=== PATIENT | female | born 1955 | race Caucasian/White ===

== ENCOUNTER 2019-04-24 16:26 | Inpatient (IN) | payer MEDICARE ==
[~2019-04-24] VITALS: Ht 165.1 cm; Wt 62.6 kg
[2019-04-24 16:40] VITALS: BP 145/71
--- NOTE | 2019-04-24 17:03 | Emergency Room Report ---
History of Present Illness General Chief Complaint: Abnormal Labs Source: Patient Present Illness HPI Patient presents with complaints of increasingly elevated blood glucose levels over the past 4 days patient has been on oral medications for the past 4 to 5 years there has been no other recent change in medications denies any change in Eating habit denies any fevers or chills denies any chest pain denies any vomiting or diarrhea Denies any flank pain The friend at bedside reports that the patient appears to be somewhat confused at times However denies any slurring of her speech denies any focal weakness Allergies: Coded Allergies: No Known Allergies (Verified , 11/15/06) Patient History Past Medical History: see triage record Now: No Reviewed Nursing Documentation: PMH: Agreed; PSxH: Agreed Nursing Documentation-PMH Past Medical History: No History, Except For Hx Diabetes: Yes Review of Systems All Other Systems: negative except mentioned in HPI Physical Exam Vital Signs Date Time Temp Pulse Resp B/P (MAP) Pulse Ox O2 Delivery O2 Flow Rate FiO2 04/24/19 16:32 98.4 102 15 145/71 (95) 97 Room Air Sp02 EP Interpretation: reviewed, normal General Appearance: mild distress - Mildly tachypneic Head: normocephalic, atraumatic Eyes: bilateral eye PERRL, bilateral eye EOMI ENT: hearing grossly normal, normal pharynx, TMs + canals normal, uvula midline Neck: full range of motion, supple, no meningismus, no bony tend Respiratory: lungs clear, normal breath sounds, no rhonchi, no respiratory distress, no retraction, no accessory muscle use Cardiovascular #1: normal peripheral pulses, regular rate, rhythm, no edema, no gallop, no JVD, no murmur Gastrointestinal: normal bowel sounds, non tender, soft, no mass, no organomegaly, non-distended, no guarding, no hernia, no pulsatile mass, no rebound Genitourinary: no CVA tenderness Musculoskeletal: normal inspection Neurologic: motor strength/tone normal, still cleaner tube III-XII nml as tested, oriented x3 , sensory intact, responsive Psychiatric: mood/affect normal Skin: no rash Lymphatic: normal inspection, no adenopathy Procedures Critical Care Time Critical Care Time 70 minutes for multiple re-evaluations critical presentation and critical findings concerning for possible cardiac respiratory arrest not including any procedural time Medical Decision Making Diagnostic Impression: Primary Impression: Diabetic keto-acidosis ER Course Multiple differentials entertained upon arrival including but not limited to DKA , hyperglycemia, infectious etiology Patient's white blood cell count is significantly elevated consideration for infectious versus Dehydration is made Urine sample also shows infectious process broad-spectrum antibiotics initiated IV fluids along with Insulin drip initiated and patient admitted to ICU in critical condition Labs Test 04/24/19 17:20 04/24/19 18:30 04/24/19 19:00 04/25/19 04:15 White Blood Count 29.6 K/UL (4.8-10.8) 23.6 K/UL (4.8-10.8) Red Blood Count 4.29 M/UL (4.20-5.40) 3.71 M/UL (4.20-5.40) Hemoglobin 12.8 G/DL (12.0-16.0) 11.0 G/DL (12.0-16.0) Hematocrit 39.4 % (37.0-47.0) 32.6 % (37.0-47.0) Mean Corpuscular Volume 92 FL (80-99) 88 FL (80-99) Mean Corpuscular Hemoglobin 29.9 PG (27.0-31.0) 29.6 PG (27.0-31.0) Mean Corpuscular Hemoglobin Concent 32.6 G/DL (32.0-36.0) 33.7 G/DL (32.0-36.0) Red Cell Distribution Width 12.0 % (11.6-14.8) 12.4 % (11.6-14.8) Platelet Count 323 K/UL (150-450) 247 K/UL (150-450) Mean Platelet Volume 8.3 FL (6.5-10.1) 9.3 FL (6.5-10.1) Neutrophils (%) (Auto) % (45.0-75.0) % (45.0-75.0) Lymphocytes (%) (Auto) % (20.0-45.0) % (20.0-45.0) Monocytes (%) (Auto) % (1.0-10.0) % (1.0-10.0) Eosinophils (%) (Auto) % (0.0-3.0) % (0.0-3.0) Basophils (%) (Auto) % (0.0-2.0) % (0.0-2.0) Differential Total Cells Counted 100 100 Neutrophils % (Manual) 89 % (45-75) 88 % (45-75) Lymphocytes % (Manual) 4 % (20-45) 8 % (20-45) Monocytes % (Manual) 3 % (1-10) 4 % (1-10) Eosinophils % (Manual) 0 % (0-3) 0 % (0-3) Basophils % (Manual) 0 % (0-2) 0 % (0-2) Metamyelocytes % 2 % (0-0) Band Neutrophils 2 % (0-8) 0 % (0-8) Platelet Estimate Adequate Adequate Platelet Morphology Normal Normal Red Blood Cell Morphology Normal Urine Color Pale yellow Urine Appearance Slightly cloudy Urine pH 5 (4.5-8.0) Urine Specific [place] 1.010 (1.005-1.035) Urine Protein Negative (NEGATIVE) Urine Glucose (UA) 4+ (NEGATIVE) Urine Ketones 2+ (NEGATIVE) Urine Blood 5+ (NEGATIVE) Urine Nitrite Negative (NEGATIVE) Urine Bilirubin Negative (NEGATIVE) Urine Urobilinogen Normal MG/DL (0.0-1.0) Urine Leukocyte Esterase 2+ (NEGATIVE) Urine RBC 10-15 /HPF (0 - 2) Urine WBC 20-30 /HPF (0 - 2) Urine Squamous Epithelial Cells Moderate /LPF (NONE/OCC) Urine Bacteria Many /HPF (NONE) Sodium Level 122 MMOL/L (136-145) 140 MMOL/L (136-145) Potassium Level 6.0 MMOL/L (3.5-5.1) 3.7 MMOL/L (3.5-5.1) Chloride Level 84 MMOL/L (98-107) 105 MMOL/L (98-107) Carbon Dioxide Level 10 MMOL/L (21-32) 20 MMOL/L (21-32) Anion Gap 28 mmol/L (5-15) 15 mmol/L (5-15) Blood Urea Nitrogen 33 mg/dL (7-18) 27 mg/dL (7-18) Creatinine 1.9 MG/DL (0.55-1.30) 1.0 MG/DL (0.55-1.30) Estimat Glomerular Filtration Rate 26.6 mL/min (>60) 55.7 mL/min (>60) Glucose Level 1058 MG/DL (74-106) 144 MG/DL (74-106) Calcium Level 10.4 MG/DL (8.5-10.1) 10.2 MG/DL (8.5-10.1) Total Bilirubin 0.7 MG/DL (0.2-1.0) 0.3 MG/DL (0.2-1.0) Aspartate Amino Transf (AST/SGOT) 11 U/L (15-37) 11 U/L (15-37) Alanine Aminotransferase (ALT/SGPT) 20 U/L (12-78) 13 U/L (12-78) Alkaline Phosphatase 110 U/L (46-116) 80 U/L (46-116) Total Protein 8.6 G/DL (6.4-8.2) 6.9 G/DL (6.4-8.2) Albumin 3.1 G/DL (3.4-5.0) 2.5 G/DL (3.4-5.0) Globulin 5.5 g/dL Albumin/Globulin Ratio 0.6 (1.0-2.7) Lipase 593 U/L (73-393) Arterial Blood pH 7.339 (7.350-7.450) Arterial Blood Partial Pressure CO2 21.5 mmHg (35.0-45.0) Arterial Blood Partial Pressure O2 121.3 mmHg (75.0-100.0) Arterial Blood HCO3 11.3 mmol/L (22.0-26.0) Arterial Blood Oxygen Saturation 97.9 % (95-100) Arterial Blood Base Excess -12.4 (-2-2) Saeid Test Positive Lactic Acid Level 1.60 mmol/L (0.4-2.0) Total Creatine Kinase 65 U/L (26-308) Creatine Kinase MB 2.4 NG/ML (0.0-3.6) Creatine Kinase MB Relative Index 3.6 Troponin I 0.019 ng/mL (0.000-0.056) Pro-B-Type Natriuretic Peptide 560 pg/mL (0-125) Hypochromasia 1+ Anisocytosis 1+ Prothrombin Time 10.3 SEC (9.30-11.50) Prothromb Time International Ratio 1.0 (0.9-1.1) Activated Partial Thromboplast Time 25 SEC (23-33) Hemoglobin A1c 14.4 % (4.3-6.0) Phosphorus Level 2.0 MG/DL (2.5-4.9) Direct Bilirubin < 0.1 MG/DL (0.0-0.3) Test 04/25/19 18:25 Sodium Level 140 MMOL/L (136-145) Potassium Level 3.9 MMOL/L (3.5-5.1) Chloride Level 107 MMOL/L (98-107) Carbon Dioxide Level 22 MMOL/L (21-32) Anion Gap 11 mmol/L (5-15) Blood Urea Nitrogen 17 mg/dL (7-18) Creatinine 0.7 MG/DL (0.55-1.30) Estimat Glomerular Filtration Rate > 60 mL/min (>60) Glucose Level 247 MG/DL (74-106) Calcium Level 9.9 MG/DL (8.5-10.1) Phosphorus Level 1.8 MG/DL (2.5-4.9) Magnesium Level 1.9 MG/DL (1.8-2.4) Rhythm Strip Diag. Results EP Interpretation: yes Rate: 95 Rhythm: NSR, no PVC's, no ectopy Chest X-Ray Diagnostic Results Chest X-Ray Diagnostic Results : Chest X-Ray Ordered: Yes # of Views/Limited/Complete: 1 View Indication: Chest Pain EP Interpretation: Yes Interpretation: no consolidation, no effusion, no pneumothorax Impression: No acute disease Electronically Signed by: Jose Juan Carter DO Last Vital Signs Date Time Temp Pulse Resp B/P (MAP) Pulse Ox O2 Delivery O2 Flow Rate FiO2 04/24/19 16:32 98.4 102 15 145/71 (95) 97 Room Air Status: improved Disposition: ADMITTED INPATIENT Condition: Critical Referrals: NON PHYSICIAN (PCP) Jose Juan Carter DO Apr 24, 2019 17:03
[2019-04-24] MEDS ORDERED: FENOFIBRATE145 M1 ORAL (17:36)
[2019-04-24] MEDS ORDERED: JANUMET 50-1,01 EACH ORAL (17:36)
[2019-04-24] MEDS ORDERED: GLIMEPIRIDE4 MG ORAL (17:36)
[2019-04-24] MEDS ORDERED: ACTOS30 MG ORAL (17:36)
[2019-04-24] MEDS ORDERED: LOSARTAN POTAS100 MG ORAL (17:36)
[2019-04-24 17:45] LABS: APPEARANCE,URINE SLIGHTLY CLOUDY; BILIRUBIN, URINE NEGATIVE (NEGATIVE); COLOR,URINE PALE YELLOW; GLUCOSE, URINE (UA) 4+ (NEGATIVE); KETONES,URINE 2+ (NEGATIVE); LEUKOCYTE ESTERASE ,URINE 2+ (NEGATIVE); NITRITE,URINE NEGATIVE (NEGATIVE); PH,URINE 5 (4.5-8.0); PROTEIN,URINE NEGATIVE (NEGATIVE); UROBILINOGEN,URINE NORMAL MG/DL (0.0-1.0)
[2019-04-24 17:54] LABS: HEMATOCRIT 39.4 % (37.0-47.0); HEMOGLOBIN 12.8 G/DL (12.0-16.0); MEAN CORPUSCULAR VOLUME 92 FL (80-99); PLATELET COUNT 323 K/UL (150-450); RED BLOOD COUNT 4.29 M/UL (4.20-5.40)
[2019-04-24 17:58] LABS: WHITE BLOOD COUNT 29.6 K/UL (4.8-10.8)
[2019-04-24 18:07] LABS: ALANINE AMINOTRANSFERASE 20 U/L (12-78); ALBUMIN 3.1 G/DL (3.4-5.0); ALBUMIN/GLOBULIN RATIO 0.6 (1.0-2.7); ALKALINE PHOSPHATASE 110 U/L (46-116); ANION GAP 28 mmol/L (5-15); ASPARTATE AMINO TRANSFERASE 11 U/L (15-37); BILIRUBIN,TOTAL 0.7 MG/DL (0.2-1.0); BLOOD UREA NITROGEN 33 mg/dL (7-18); CALCIUM 10.4 MG/DL (8.5-10.1); CARBON DIOXIDE 10 MMOL/L (21-32); CHLORIDE 84 MMOL/L (98-107); CREATININE 1.9 MG/DL (0.55-1.30); SODIUM 122 MMOL/L (136-145)
[2019-04-24] MEDS ORDERED: Insulin Human Regular 100units/ml 3ml IV ONE (18:15)
[2019-04-24] MEDS ORDERED: Sodium Chloride 1,900 ML IVLG ONE (18:15)
[2019-04-24] MEDS ORDERED: GLYXAMBI 10 MG1 EACH PO (18:18)
[2019-04-24] MEDS ORDERED: cefTRIAXone 1 GM in NS 55 ML IVPB ONE (19:15)
[2019-04-24] MEDS ORDERED: Sodium Bicarbonate 50ml Carp IV ONE (19:15)
[2019-04-24 20:02] LABS: CKMB 2.4 NG/ML (0.0-3.6)
[2019-04-24 21:00] VITALS: BP 134/62
[2019-04-24] MEDS ORDERED: Morphine Sulfate 4mg/ml Inj (IV USE ONLY) IVP PRN (21:30)
[2019-04-24] MEDS ORDERED: Miralax 17gm pkt ORAL PRN (21:30)
[2019-04-24] MEDS ORDERED: Insulin Human Regular 100units/ml 3ml IV PRN ×2 (21:30)
[2019-04-24] MEDS ORDERED: Albuterol/Ipratropium 3ml neb HHN PRN (21:30)
[2019-04-24] MEDS ORDERED: Nitroglycerin Subl 0.4mg tab SL PRN (21:30)
[2019-04-24] MEDS ORDERED: LORazepam Inj 2mg/ml 1ml IV PRN (21:30)
[2019-04-24 22:00] VITALS: BP 119/44
[2019-04-24 23:00] VITALS: BP 121/54
[2019-04-24] MEDS: Insulin Rate Change 1 Each MISC PRN (23:08)
[2019-04-25] VITALS (22 sets, daily range): BP systolic 110–151; BP diastolic 38–113
[2019-04-25] MEDS ORDERED: Insulin Human Regular 100units/ml 3ml IV PRN ×4 (00:15→10:00)
[2019-04-25] MEDS ORDERED: Insulin Rate Change 1 Each MISC PRN (00:15)
[2019-04-25] MEDS: Insulin Rate Change 1 Each MISC PRN ×5 (02:09→16:07)
[2019-04-25 05:18] LABS: HEMATOCRIT 32.6 % (37.0-47.0); MEAN CORPUSCULAR VOLUME 88 FL (80-99); PLATELET COUNT 247 K/UL (150-450); RED BLOOD COUNT 3.71 M/UL (4.20-5.40); RED CELL DISTRIBUTION WIDTH 12.4 % (11.6-14.8)
[2019-04-25 05:35] LABS: ANION GAP 15 mmol/L (5-15); BLOOD UREA NITROGEN 27 mg/dL (7-18); CALCIUM 10.2 MG/DL (8.5-10.1); CARBON DIOXIDE 20 MMOL/L (21-32); CHLORIDE 105 MMOL/L (98-107); POTASSIUM 3.7 MMOL/L (3.5-5.1); SODIUM 140 MMOL/L (136-145)
[2019-04-25 05:55] LABS: ALANINE AMINOTRANSFERASE 13 U/L (12-78); ALBUMIN 2.5 G/DL (3.4-5.0); ALKALINE PHOSPHATASE 80 U/L (46-116); ASPARTATE AMINO TRANSFERASE 11 U/L (15-37); BILIRUBIN,DIRECT < 0.1 MG/DL (0.0-0.3); BILIRUBIN,TOTAL 0.3 MG/DL (0.2-1.0)
[2019-04-25 05:56] LABS: WHITE BLOOD COUNT 23.6 K/UL (4.8-10.8)
[2019-04-25] MEDS: Heparin 5000 units/ml inj SUBQ SCH ×2 (08:15→21:33)
--- NOTE | 2019-04-25 10:41 | Consultation ---
History of Present Illness General Date patient seen: Apr 25, 2019 Chief Complaint: General Complaint Present Illness HPI 63 year old female with hx of DM presented to ER complaining of increasingly elevated blood glucose levels over the past 4 days. Pt's reports that the patient appears to be somewhat confused at times, with obsessive behavior. Allergies: Coded Allergies: No Known Allergies (Verified , 11/15/06) Medication History Scheduled Fenofibrate Nanocrystallized (Fenofibrate), 145 MG ORAL DAILY, (Reported) Glimepiride* (Glimepiride*), 4 MG ORAL DAILY, (Reported) Losartan Potassium (Losartan Potassium), 100 MG ORAL DAILY, (Reported) Pioglitazone Hcl* (Actos*), 30 MG ORAL DAILY, (Reported) Sitagliptin Phos/Metformin Hcl (Janumet 50-1,000 Mg Tablet), 1 TAB ORAL TWICE A DAY, (Reported) Miscellaneous Medications Empagliflozin/Linagliptin (Glyxambi 10 mg-5 mg Tablet), 1 EACH PO, (Reported) Patient History Healthcare decision maker N Resuscitation status Full Code Advanced Directive on File Past Medical/Surgical History Past Medical/Surgical History: (1) Diabetes mellitus Review of Systems All Other Systems: negative except mentioned in HPI Physical Exam General Appearance: WD/WN, alert Lines, tubes and drains: peripheral HEENT: normocephalic, atraumatic Neck: non-tender, normal alignment Respiratory/Chest: chest wall non-tender, lungs clear Breasts: no masses Cardiovascular/Chest: normal peripheral pulses, normal rate Abdomen: normal bowel sounds, non tender Genitourinary/Rectal: normal genital exam, normal prostate exam Extremities: normal range of motion, non-tender Skin Exam: normal pigmentation Neurologic: marketing professional II-XII grossly normal Last 24 Hour Vital Signs Date Time Temp Pulse Resp B/P (MAP) Pulse Ox O2 Delivery O2 Flow Rate FiO2 04/25/19 07:00 86 21 137/44 (75) 95 04/25/19 06:00 82 17 120/45 (70) 97 04/25/19 05:00 84 17 110/38 (62) 96 04/25/19 04:00 Room Air 04/25/19 04:00 98.8 82 20 127/55 (79) 97 04/25/19 03:37 84 04/25/19 03:00 81 18 128/56 (80) 95 04/25/19 02:34 99.2 83 20 127/55 94 Room Air 04/25/19 02:00 83 20 127/55 (79) 94 04/25/19 01:00 90 19 131/53 (79) 96 04/25/19 00:00 99.2 92 17 131/63 (85) 97 04/25/19 00:00 Room Air 04/24/19 23:04 95 04/24/19 23:00 96 22 121/54 (76) 93 04/24/19 22:00 93 21 119/44 (69) 98 04/24/19 21:17 105 04/24/19 21:17 Room Air 04/24/19 21:00 99.3 97 22 134/62 (86) 97 04/24/19 18:43 86 15 Room Air 04/24/19 16:40 98.4 86 15 145/71 97 Room Air 04/24/19 16:32 98.4 102 15 145/71 (95) 97 Room Air Intake and Output 04/24/19 04/25/19 19:00 07:00 Intake Total 3399.03 ml Output Total 550 ml Balance 2849.03 ml Intake Oral 0 ml IV Total 3399.03 ml Output Urine Total 550 ml # Voids 1 6 Laboratory Tests Test 04/24/19 17:20 04/24/19 18:30 04/24/19 19:00 04/25/19 04:15 White Blood Count 29.6 K/UL (4.8-10.8) *H 23.6 K/UL (4.8-10.8) *H Red Blood Count 4.29 M/UL (4.20-5.40) 3.71 M/UL (4.20-5.40) L Hemoglobin 12.8 G/DL (12.0-16.0) 11.0 G/DL (12.0-16.0) L Hematocrit 39.4 % (37.0-47.0) 32.6 % (37.0-47.0) L Mean Corpuscular Volume 92 FL (80-99) 88 FL (80-99) Mean Corpuscular Hemoglobin 29.9 PG (27.0-31.0) 29.6 PG (27.0-31.0) Mean Corpuscular Hemoglobin Concent 32.6 G/DL (32.0-36.0) 33.7 G/DL (32.0-36.0) Red Cell Distribution Width 12.0 % (11.6-14.8) 12.4 % (11.6-14.8) Platelet Count 323 K/UL (150-450) 247 K/UL (150-450) Mean Platelet Volume 8.3 FL (6.5-10.1) 9.3 FL (6.5-10.1) Neutrophils (%) (Auto) % (45.0-75.0) % (45.0-75.0) Lymphocytes (%) (Auto) % (20.0-45.0) % (20.0-45.0) Monocytes (%) (Auto) % (1.0-10.0) % (1.0-10.0) Eosinophils (%) (Auto) % (0.0-3.0) % (0.0-3.0) Basophils (%) (Auto) % (0.0-2.0) % (0.0-2.0) Differential Total Cells Counted 100 100 Neutrophils % (Manual) 89 % (45-75) H 88 % (45-75) H Lymphocytes % (Manual) 4 % (20-45) L 8 % (20-45) L Monocytes % (Manual) 3 % (1-10) 4 % (1-10) Eosinophils % (Manual) 0 % (0-3) 0 % (0-3) Basophils % (Manual) 0 % (0-2) 0 % (0-2) Metamyelocytes % 2 % (0-0) H Band Neutrophils 2 % (0-8) 0 % (0-8) Platelet Estimate Adequate Adequate Platelet Morphology Normal Normal Red Blood Cell Morphology Normal Urine Color Pale yellow Urine Appearance Slightly cloudy Urine pH 5 (4.5-8.0) Urine Specific [place] 1.010 (1.005-1.035) Urine Protein Negative (NEGATIVE) Urine Glucose (UA) 4+ (NEGATIVE) H Urine Ketones 2+ (NEGATIVE) H Urine Blood 5+ (NEGATIVE) H Urine Nitrite Negative (NEGATIVE) Urine Bilirubin Negative (NEGATIVE) Urine Urobilinogen Normal MG/DL (0.0-1.0) Urine Leukocyte Esterase 2+ (NEGATIVE) H Urine RBC 10-15 /HPF (0 - 2) H Urine WBC 20-30 /HPF (0 - 2) H Urine Squamous Epithelial Cells Moderate /LPF (NONE/OCC) H Urine Bacteria Many /HPF (NONE) H Sodium Level 122 MMOL/L (136-145) L 140 MMOL/L (136-145) # Potassium Level 6.0 MMOL/L (3.5-5.1) *H 3.7 MMOL/L (3.5-5.1) Chloride Level 84 MMOL/L (98-107) L 105 MMOL/L (98-107) Carbon Dioxide Level 10 MMOL/L (21-32) L 20 MMOL/L (21-32) L Anion Gap 28 mmol/L (5-15) H 15 mmol/L (5-15) Blood Urea Nitrogen 33 mg/dL (7-18) H 27 mg/dL (7-18) H Creatinine 1.9 MG/DL (0.55-1.30) H 1.0 MG/DL (0.55-1.30) Estimat Glomerular Filtration Rate 26.6 mL/min (>60) 55.7 mL/min (>60) Glucose Level 1058 MG/DL (74-106) *H 144 MG/DL (74-106) #H Calcium Level 10.4 MG/DL (8.5-10.1) H 10.2 MG/DL (8.5-10.1) H Total Bilirubin 0.7 MG/DL (0.2-1.0) 0.3 MG/DL (0.2-1.0) Aspartate Amino Transf (AST/SGOT) 11 U/L (15-37) L 11 U/L (15-37) L Alanine Aminotransferase (ALT/SGPT) 20 U/L (12-78) 13 U/L (12-78) Alkaline Phosphatase 110 U/L (46-116) 80 U/L (46-116) Total Protein 8.6 G/DL (6.4-8.2) H 6.9 G/DL (6.4-8.2) Albumin 3.1 G/DL (3.4-5.0) L 2.5 G/DL (3.4-5.0) L Globulin 5.5 g/dL Albumin/Globulin Ratio 0.6 (1.0-2.7) L Lipase 593 U/L (73-393) H Arterial Blood pH 7.339 (7.350-7.450) Arterial Blood Partial Pressure CO2 21.5 mmHg (35.0-45.0) *L Arterial Blood Partial Pressure O2 121.3 mmHg (75.0-100.0) H Arterial Blood HCO3 11.3 mmol/L (22.0-26.0) *L Arterial Blood Oxygen Saturation 97.9 % (95-100) Arterial Blood Base Excess -12.4 (-2-2) *L Saeid Test Positive Lactic Acid Level 1.60 mmol/L (0.4-2.0) Total Creatine Kinase 65 U/L (26-308) Creatine Kinase MB 2.4 NG/ML (0.0-3.6) Creatine Kinase MB Relative Index 3.6 Troponin I 0.019 ng/mL (0.000-0.056) Pro-B-Type Natriuretic Peptide 560 pg/mL (0-125) H Hypochromasia 1+ Anisocytosis 1+ Prothrombin Time 10.3 SEC (9.30-11.50) Prothromb Time International Ratio 1.0 (0.9-1.1) Activated Partial Thromboplast Time 25 SEC (23-33) Phosphorus Level 2.0 MG/DL (2.5-4.9) L Direct Bilirubin < 0.1 MG/DL (0.0-0.3) Microbiology Date/Time Source Procedure Growth Status 04/24/19 17:20 Urine,Clean Catch Urine Culture - Preliminary Gram Negative Bacillus 1 Resulted 04/24/19 19:31 Rectum Received Height (Feet): 5 Height (Inches): 5.00 Weight (Pounds): 134 Medications Current Medications Medications (Trade) Dose Ordered Sig/Juan Jose Route PRN Reason Start Time Stop Time Status Last Admin Dose Admin Acetaminophen (Tylenol) 650 mg Q4H PRN ORAL Fever (T>100.5F) 04/24/19 21:30 05/24/19 21:29 Albuterol/ Ipratropium (Albuterol/ Ipratropium) 3 ml Q4H PRN HHN Shortness of Breath 04/24/19 21:30 04/29/19 21:29 Ceftriaxone Sodium 1 gm/ Dextrose 55 ml @ 110 mls/hr Q24H IVPB 04/25/19 10:30 05/02/19 10:29 UNV Dextrose (Dextrose 50%) 25 ml Q30M PRN IV HYPOGLYCEMIA 04/24/19 21:30 05/24/19 21:29 Dextrose (Dextrose 50%) 50 ml Q30M PRN IV Hypoglycemia 04/24/19 21:30 05/24/19 21:29 Heparin Sodium (Porcine) (Heparin 5000 units/ml) 5,000 units EVERY 12 HOURS SUBQ 04/25/19 09:00 05/25/19 08:59 04/25/19 08:15 Insulin Human Regular (NovoLIN R) 5 units PRN PRN IV BS 200-299 04/24/19 21:30 05/24/19 21:29 04/24/19 23:08 Insulin Human Regular (NovoLIN R) 10 units PRN PRN IV BS=>300 04/24/19 21:30 05/24/19 21:29 04/24/19 22:16 Insulin Human Regular 100 units/ Sodium Chloride 100 ml @ 0 mls/hr Q24H IV 04/25/19 09:54 05/25/19 09:53 Lorazepam (Ativan 2mg/ml 1ml) 2 mg Q2H PRN IV agitation 04/24/19 21:30 05/01/19 21:29 Miscellaneous Medication (Insulin Rate Change) 1 ea PRN PRN MISC To Patient Comfort 04/24/19 21:30 05/24/19 21:29 04/25/19 02:09 Morphine Sulfate (Morphine Sulfate) 4 mg Q4H PRN IVP Severe Pain (Pain Scale 7-10) 04/24/19 21:30 05/01/19 21:29 Nitroglycerin (Ntg) 0.4 mg Q5M PRN SL Prn Chest Pain 04/24/19 21:30 05/24/19 21:29 Ondansetron HCl (Zofran) 4 mg Q6H PRN IVP Nausea & Vomiting 04/24/19 21:30 05/24/19 21:29 Polyethylene Glycol (Miralax) 17 gm DAILYPRN PRN ORAL Constipation 04/24/19 21:30 05/24/19 21:29 Sodium Chloride 1,000 ml @ 150 mls/hr Q6H40M IV 04/24/19 21:30 05/24/19 21:29 04/25/19 10:21 Assessment/Plan Problem List: (1) Diabetic keto-acidosis ICD Codes: E11.10 - Type 2 diabetes mellitus with ketoacidosis without coma SNOMED: 31210896, 626539651 (2) Acute metabolic encephalopathy ICD Codes: G93.41 - Metabolic encephalopathy SNOMED: 89687724, 954820627 (3) UTI (urinary tract infection) ICD Codes: N39.0 - Urinary tract infection, site not specified SNOMED: 51414907 Assessment/Plan: insulin drip IV fluids check urine cultures sliding scale hourly check electrolytes and supplement K and phos dvt prophylaxis Krista Ramirez MD Apr 25, 2019 10:41
--- NOTE | 2019-04-25 10:54 | Diagnostic Imaging Report ---
Indication: Shortness of breath Technique: XRAY Chest 1v Comparison: 11/15/2006 Findings: Heart size and mediastinal contours are within normal limits for AP technique. Symmetric haziness of the bilateral lower lungs likely artifactual related to attenuation from overlying soft tissue/breast. There is no definite focal airspace consolidation, pneumothorax or pleural effusion. Mild scoliosis is suggested. Osseous structures demonstrate no acute abnormality. Impression: No radiographic evidence of acute cardiopulmonary disease.
--- NOTE | 2019-04-25 11:27 | Consultation ---
History of Present Illness General Date patient seen: Apr 25, 2019 Chief Complaint: General Complaint Present Illness HPI 63 y/o F with hx of Dm2 presented to ED on 04/24 with uncontrolled hyperglycemia and altered mentation Denied f/c, CP, v/d Allergies: Coded Allergies: No Known Allergies (Verified , 11/15/06) Medication History Scheduled Fenofibrate Nanocrystallized (Fenofibrate), 145 MG ORAL DAILY, (Reported) Glimepiride* (Glimepiride*), 4 MG ORAL DAILY, (Reported) Losartan Potassium (Losartan Potassium), 100 MG ORAL DAILY, (Reported) Pioglitazone Hcl* (Actos*), 30 MG ORAL DAILY, (Reported) Sitagliptin Phos/Metformin Hcl (Janumet 50-1,000 Mg Tablet), 1 TAB ORAL TWICE A DAY, (Reported) Miscellaneous Medications Empagliflozin/Linagliptin (Glyxambi 10 mg-5 mg Tablet), 1 EACH PO, (Reported) Patient History Healthcare decision maker N Resuscitation status Full Code Advanced Directive on File Patient History Narrative Pmhx: as above Shx: reviewed Fhx: non contributory Review of Systems All Other Systems: negative except mentioned in HPI Physical Exam Physical Exam Narrative General Appearance: WD/WN, alert Lines, tubes and drains: peripheral HEENT: normocephalic, atraumatic Neck: non-tender, normal alignment Respiratory/Chest: chest wall non-tender, lungs clear Breasts: no masses Cardiovascular/Chest: normal peripheral pulses, normal rate Abdomen: normal bowel sounds, non tender Genitourinary/Rectal: normal genital exam, normal prostate exam Extremities: normal range of motion, non-tender Skin Exam: normal pigmentation Neurologic: edi analyst II-XII grossly normal Last 24 Hour Vital Signs Date Time Temp Pulse Resp B/P (MAP) Pulse Ox O2 Delivery O2 Flow Rate FiO2 04/25/19 10:00 82 18 134/47 (76) 95 04/25/19 09:00 81 16 127/54 (78) 95 04/25/19 08:00 99.0 86 18 145/53 (83) 97 04/25/19 07:00 86 21 137/44 (75) 95 04/25/19 06:00 82 17 120/45 (70) 97 04/25/19 05:00 84 17 110/38 (62) 96 04/25/19 04:00 Room Air 12/12/19 04:00 98.8 82 20 127/55 (79) 97 04/25/19 03:37 84 04/25/19 03:00 81 18 128/56 (80) 95 04/25/19 02:34 99.2 83 20 127/55 94 Room Air 04/25/19 02:00 83 20 127/55 (79) 94 04/25/19 01:00 90 19 131/53 (79) 96 04/25/19 00:00 99.2 92 17 131/63 (85) 97 04/25/19 00:00 Room Air 04/24/19 23:04 95 04/24/19 23:00 96 22 121/54 (76) 93 04/24/19 22:00 93 21 119/44 (69) 98 04/24/19 21:17 105 04/24/19 21:17 Room Air 04/24/19 21:00 99.3 97 22 134/62 (86) 97 04/24/19 18:43 86 15 Room Air 04/24/19 16:40 98.4 86 15 145/71 97 Room Air 04/24/19 16:32 98.4 102 15 145/71 (95) 97 Room Air Intake and Output 04/24/19 04/25/19 18:59 06:59 Intake Total 3247.03 ml Output Total 450 ml Balance 2797.03 ml Intake Oral 0 ml IV Total 3247.03 ml Output Urine Total 450 ml # Voids 1 3 Laboratory Tests Test 04/24/19 17:20 04/24/19 18:30 04/24/19 19:00 04/25/19 04:15 White Blood Count 29.6 K/UL (4.8-10.8) *H 23.6 K/UL (4.8-10.8) *H Red Blood Count 4.29 M/UL (4.20-5.40) 3.71 M/UL (4.20-5.40) L Hemoglobin 12.8 G/DL (12.0-16.0) 11.0 G/DL (12.0-16.0) L Hematocrit 39.4 % (37.0-47.0) 32.6 % (37.0-47.0) L Mean Corpuscular Volume 92 FL (80-99) 88 FL (80-99) Mean Corpuscular Hemoglobin 29.9 PG (27.0-31.0) 29.6 PG (27.0-31.0) Mean Corpuscular Hemoglobin Concent 32.6 G/DL (32.0-36.0) 33.7 G/DL (32.0-36.0) Red Cell Distribution Width 12.0 % (11.6-14.8) 12.4 % (11.6-14.8) Platelet Count 323 K/UL (150-450) 247 K/UL (150-450) Mean Platelet Volume 8.3 FL (6.5-10.1) 9.3 FL (6.5-10.1) Neutrophils (%) (Auto) % (45.0-75.0) % (45.0-75.0) Lymphocytes (%) (Auto) % (20.0-45.0) % (20.0-45.0) Monocytes (%) (Auto) % (1.0-10.0) % (1.0-10.0) Eosinophils (%) (Auto) % (0.0-3.0) % (0.0-3.0) Basophils (%) (Auto) % (0.0-2.0) % (0.0-2.0) Differential Total Cells Counted 100 100 Neutrophils % (Manual) 89 % (45-75) H 88 % (45-75) H Lymphocytes % (Manual) 4 % (20-45) L 8 % (20-45) L Monocytes % (Manual) 3 % (1-10) 4 % (1-10) Eosinophils % (Manual) 0 % (0-3) 0 % (0-3) Basophils % (Manual) 0 % (0-2) 0 % (0-2) Metamyelocytes % 2 % (0-0) H Band Neutrophils 2 % (0-8) 0 % (0-8) Platelet Estimate Adequate Adequate Platelet Morphology Normal Normal Red Blood Cell Morphology Normal Urine Color Pale yellow Urine Appearance Slightly cloudy Urine pH 5 (4.5-8.0) Urine Specific [place] 1.010 (1.005-1.035) Urine Protein Negative (NEGATIVE) Urine Glucose (UA) 4+ (NEGATIVE) H Urine Ketones 2+ (NEGATIVE) H Urine Blood 5+ (NEGATIVE) H Urine Nitrite Negative (NEGATIVE) Urine Bilirubin Negative (NEGATIVE) Urine Urobilinogen Normal MG/DL (0.0-1.0) Urine Leukocyte Esterase 2+ (NEGATIVE) H Urine RBC 10-15 /HPF (0 - 2) H Urine WBC 20-30 /HPF (0 - 2) H Urine Squamous Epithelial Cells Moderate /LPF (NONE/OCC) H Urine Bacteria Many /HPF (NONE) H Sodium Level 122 MMOL/L (136-145) L 140 MMOL/L (136-145) # Potassium Level 6.0 MMOL/L (3.5-5.1) *H 3.7 MMOL/L (3.5-5.1) Chloride Level 84 MMOL/L (98-107) L 105 MMOL/L (98-107) Carbon Dioxide Level 10 MMOL/L (21-32) L 20 MMOL/L (21-32) L Anion Gap 28 mmol/L (5-15) H 15 mmol/L (5-15) Blood Urea Nitrogen 33 mg/dL (7-18) H 27 mg/dL (7-18) H Creatinine 1.9 MG/DL (0.55-1.30) H 1.0 MG/DL (0.55-1.30) Estimat Glomerular Filtration Rate 26.6 mL/min (>60) 55.7 mL/min (>60) Glucose Level 1058 MG/DL (74-106) *H 144 MG/DL (74-106) #H Calcium Level 10.4 MG/DL (8.5-10.1) H 10.2 MG/DL (8.5-10.1) H Total Bilirubin 0.7 MG/DL (0.2-1.0) 0.3 MG/DL (0.2-1.0) Aspartate Amino Transf (AST/SGOT) 11 U/L (15-37) L 11 U/L (15-37) L Alanine Aminotransferase (ALT/SGPT) 20 U/L (12-78) 13 U/L (12-78) Alkaline Phosphatase 110 U/L (46-116) 80 U/L (46-116) Total Protein 8.6 G/DL (6.4-8.2) H 6.9 G/DL (6.4-8.2) Albumin 3.1 G/DL (3.4-5.0) L 2.5 G/DL (3.4-5.0) L Globulin 5.5 g/dL Albumin/Globulin Ratio 0.6 (1.0-2.7) L Lipase 593 U/L (73-393) H Arterial Blood pH 7.339 (7.350-7.450) Arterial Blood Partial Pressure CO2 21.5 mmHg (35.0-45.0) *L Arterial Blood Partial Pressure O2 121.3 mmHg (75.0-100.0) H Arterial Blood HCO3 11.3 mmol/L (22.0-26.0) *L Arterial Blood Oxygen Saturation 97.9 % (95-100) Arterial Blood Base Excess -12.4 (-2-2) *L Saeid Test Positive Lactic Acid Level 1.60 mmol/L (0.4-2.0) Total Creatine Kinase 65 U/L (26-308) Creatine Kinase MB 2.4 NG/ML (0.0-3.6) Creatine Kinase MB Relative Index 3.6 Troponin I 0.019 ng/mL (0.000-0.056) Pro-B-Type Natriuretic Peptide 560 pg/mL (0-125) H Hypochromasia 1+ Anisocytosis 1+ Prothrombin Time 10.3 SEC (9.30-11.50) Prothromb Time International Ratio 1.0 (0.9-1.1) Activated Partial Thromboplast Time 25 SEC (23-33) Hemoglobin A1c 14.4 % (4.3-6.0) H Phosphorus Level 2.0 MG/DL (2.5-4.9) L Direct Bilirubin < 0.1 MG/DL (0.0-0.3) Microbiology Date/Time Source Procedure Growth Status 04/24/19 17:20 Urine,Clean Catch Urine Culture - Preliminary Gram Negative Bacillus 1 Resulted 04/24/19 19:31 Rectum Received Height (Feet): 5 Height (Inches): 5.00 Weight (Pounds): 134 Medications Current Medications Medications (Trade) Dose Ordered Sig/Juan Jose Route PRN Reason Start Time Stop Time Status Last Admin Dose Admin Acetaminophen (Tylenol) 650 mg Q4H PRN ORAL Fever (T>100.5F) 04/24/19 21:30 05/24/19 21:29 Albuterol/ Ipratropium (Albuterol/ Ipratropium) 3 ml Q4H PRN HHN Shortness of Breath 04/24/19 21:30 04/29/19 21:29 Ceftriaxone Sodium 1 gm/ Dextrose 55 ml @ 110 mls/hr Q24H IVPB 04/25/19 12:00 05/02/19 11:59 Dextrose (Dextrose 50%) 25 ml Q30M PRN IV HYPOGLYCEMIA 04/24/19 21:30 05/24/19 21:29 Dextrose (Dextrose 50%) 50 ml Q30M PRN IV Hypoglycemia 04/24/19 21:30 05/24/19 21:29 Heparin Sodium (Porcine) (Heparin 5000 units/ml) 5,000 units EVERY 12 HOURS SUBQ 04/25/19 09:00 05/25/19 08:59 04/25/19 08:15 Insulin Human Regular (NovoLIN R) 5 units PRN PRN IV BS 200-299 04/24/19 21:30 05/24/19 21:29 04/24/19 23:08 Insulin Human Regular (NovoLIN R) 10 units PRN PRN IV BS=>300 04/24/19 21:30 05/24/19 21:29 04/24/19 22:16 Insulin Human Regular 100 units/ Sodium Chloride 100 ml @ 0 mls/hr Q24H IV 04/25/19 09:54 05/25/19 09:53 04/25/19 10:35 Lorazepam (Ativan 2mg/ml 1ml) 2 mg Q2H PRN IV agitation 04/24/19 21:30 05/01/19 21:29 Miscellaneous Medication (Insulin Rate Change) 1 ea PRN PRN MISC To Patient Comfort 04/24/19 21:30 05/24/19 21:29 04/25/19 02:09 Morphine Sulfate (Morphine Sulfate) 4 mg Q4H PRN IVP Severe Pain (Pain Scale 7-10) 04/24/19 21:30 05/01/19 21:29 Nitroglycerin (Ntg) 0.4 mg Q5M PRN SL Prn Chest Pain 04/24/19 21:30 05/24/19 21:29 Ondansetron HCl (Zofran) 4 mg Q6H PRN IVP Nausea & Vomiting 04/24/19 21:30 05/24/19 21:29 Polyethylene Glycol (Miralax) 17 gm DAILYPRN PRN ORAL Constipation 04/24/19 21:30 05/24/19 21:29 Potassium Phosphate 250 ml @ 83.333 mls/ hr Q3H IVPB 04/25/19 12:00 04/25/19 17:59 Sodium Chloride 1,000 ml @ 75 mls/hr [id number] IV 04/25/19 11:00 05/25/19 10:59 04/25/19 11:17 Assessment/Plan Assessment/Plan: Abx: Ceftriaxone 04/24- Assessment: Sepsis vs SIRS Probable UTI -u/a wbc 20-30, nit neg, leuk +2; ucx >100k GNR -CXR: no acute disease -04/24 BCx p Afebrile HyperLeukocytosis; improving- probably combination of reactive and probable infection DKA Acute encephalopathy FROILAN, improving Dm2 Plan: -Continue empiric Ceftriaxone #2 for UTI pending urine culture -f/u cx -Monitor CBC/CMP, temperatures -aspiration precautions Thank you for consulting [facility]. Will continue to follow along with you. Discussed with Zahida Simmons M.D. Apr 25, 2019 11:27
[2019-04-25] MEDS ORDERED: Potassium Phosphate 30 MM in Sodium Chloride 550 ML IV SCH (12:00)
[2019-04-25] MEDS ORDERED: cefTRIAXone 1 GM in D5W 55 ML IVPB SCH (12:00)
--- NOTE | 2019-04-25 12:39 | Cardiology Report ---
APPROVED REPORT EKG Measurement Heart [id number] [id number] Sinus tachycardia Possible Left atrial enlargement Nonspecific ST and T wave abnormality Prolonged QT Abnormal ECG
[2019-04-25] MEDS: Potassium Phosphate 15mm/250ml 250 ML IVPB SCH ×2 (12:57→15:09)
[2019-04-25] MEDS ORDERED: Vasopressin 100 UNITS in NS 95 ML IV SCH (17:15)
--- NOTE | 2019-04-25 18:33 | History & Physical ---
History and Physical History & Physicial Dictated for Int Med-Dr Pereira no. [id number]. Leopoldo Long MD Apr 25, 2019 18:33
[2019-04-25 19:11] LABS: ANION GAP 11 mmol/L (5-15); BLOOD UREA NITROGEN 17 mg/dL (7-18); CALCIUM 9.9 MG/DL (8.5-10.1); CARBON DIOXIDE 22 MMOL/L (21-32); CHLORIDE 107 MMOL/L (98-107); CREATININE 0.7 MG/DL (0.55-1.30); PHOSPHORUS 1.8 MG/DL (2.5-4.9); POTASSIUM 3.9 MMOL/L (3.5-5.1); SODIUM 140 MMOL/L (136-145)
--- NOTE | 2019-04-25 19:45 | History and Physical Report ---
DATE OF ADMISSION: 04/24/2019 CHIEF COMPLAINT: The patient is a 63-year-old female who presents with chief complaint of altered mental status. HISTORY OF PRESENT ILLNESS: The patient has a history of diabetes. According to the patient's friend at the bedside, the patient has been confused over the last couple of days. The patient has been forgetting some things. The patient presented to [place] emergency room. Glucose was found to be elevated at 1058. The patient was noted to have ketones in her urine. The patient was admitted for hyperglycemia and diabetic ketoacidosis. REVIEW OF SYSTEMS: Unable to assess secondary to the patient's mental status. PAST MEDICAL HISTORY: Significant for: 1. Type 2 diabetes. 2. Hypercholesterolemia. 3. Hypertension. PAST SURGICAL HISTORY: Unknown. CURRENT MEDICATIONS: 1. Empagliflozin-Linagliptin 10/5 one tablet p.o. daily. 2. Fenofibrate 145 mg p.o. daily. 3. Glimepiride 4 mg p.o. daily. 4. Losartan 100 mg p.o. daily. 5. Actos 30 mg p.o. daily. 6. Janumet one tab p.o. twice daily. ALLERGIES: No known drug allergies. SOCIAL HISTORY: The patient is . The patient denies tobacco or alcohol use. PHYSICAL EXAMINATION: VITAL SIGNS: Temperature 99.2, respirations 20, pulse 83, blood pressure 127/55. GENERAL: The patient is well-developed and well-nourished female, in no apparent distress. The patient was noted to be confused. HEENT: Eyes, pupils are equal and responsive to light and accommodation. Extraocular muscles are intact. NECK: Supple. No lymphadenopathy. CHEST: Lungs are clear to auscultation bilaterally without wheezes or rales. CARDIOVASCULAR: Regular rate. S1 and S2 are normal without murmurs, rubs, or gallops. ABDOMEN: Soft, nontender, nondistended. Positive bowel sounds. No evidence of hepatosplenomegaly. Currently, no rebound or guarding noted. EXTREMITIES: Negative for clubbing, cyanosis, or edema. RECTAL: Not performed. GENITAL: Not performed. NEUROLOGIC: Cranial nerves II to XII are grossly intact without focal deficits. Motor strength is 5/5 bilaterally. Deep tendon reflexes are 2+ plantar. LABORATORY STUDIES: WBC 29.6, hemoglobin 12.8, hematocrit 39.4, platelets 322,000. Sodium 122, potassium 6.0, chloride , CO2 10, BUN 33, creatinine 1.9, glucose 1058. Arterial blood gas reveals pH is 7.339, pCO2 21.5, pO2 121.3, bicarb 11.3, oxygen saturation 97.9, base excess -12.4. Urinalysis showed 4+ glucose, 2+ ketones, 5+ blood, 2+ leukocyte esterase with 20 to 30 wbc's. ASSESSMENT: This is a 63-year-old female. 1. Altered mental status. 2. Hyperglycemia. 3. Diabetic ketoacidosis. 4. Leukocytosis. 5. Urinary tract infection. 6. Diabetes type 2. 7. . 8. Hypercholesterolemia. TREATMENT: 1. Hyperglycemia/diabetic ketoacidosis. The patient has been placed on insulin drip. The patient is currently in the intensive care unit. An Endocrinology consultation has been obtained with Dr. Sergio Decker. We will follow recommendations of Endocrinology. 2. Urinary tract infection/leukocytosis. A urine culture is pending. The patient has been placed empirically on ceftriaxone. Await urine culture results. 3. Altered mental status is probably secondary to diabetic ketoacidosis. 4. Diabetes type 2. 5. Hypertension. The patient is currently hypotensive. 6. Hypercholesterolemia. Continue gemfibrozil as above. Leopoldo Long M.D. DR: Katia JOB#: [id number] CC:
[2019-04-25 19:59] LABS: ALANINE AMINOTRANSFERASE 12 U/L (12-78); ALBUMIN 2.4 G/DL (3.4-5.0); ALKALINE PHOSPHATASE 69 U/L (46-116); ASPARTATE AMINO TRANSFERASE 14 U/L (15-37); BILIRUBIN,DIRECT < 0.1 MG/DL (0.0-0.3); BILIRUBIN,TOTAL 0.2 MG/DL (0.2-1.0); CHOLESTEROL 256 MG/DL (< 200); HDL CHOLESTEROL 28 MG/DL (40-60); TRIGLYCERIDES 761 MG/DL (30-150)
[2019-04-25] MEDS ORDERED: NovoLOG Insulin Flexpen SUBQ SCH (21:00)
[2019-04-25] MEDS ORDERED: Levemir Flexpen SUBQ SCH (21:00)
[2019-04-25] MEDS ORDERED: Nitroglycerin Subl 0.4mg tab SL PRN (21:45)
--- NOTE | 2019-04-25 23:00 | Consultation ---
DATE OF CONSULTATION: 04/25/2019 ENDOCRINOLOGY CONSULTATION CONSULTING PHYSICIAN: Sergio Decker M.D. REFERRING PHYSICIAN: Mike Pereira M.D. REASON FOR CONSULTATION: DKA. HISTORY OF PRESENT ILLNESS: The patient is a 63-year-old female, who I am familiar with. Initially, I met her in 2006 when she presented to [facility] with DKA and was diagnosed with diabetes. Her diabetes over the past 3 years was managed by oral agents, but she has been noncompliant with the followup and medications. Also, she has been not currently seeking with a diabetic diet. I received a call from the patient's yesterday stating that the patient is not acting right and has lost about 30 pounds, so I recommended to come to the emergency room, and on presentation glucose was over 1000 and the patient was in diabetic ketoacidosis. She was admitted to the hospital and cared by Dr. Ramirez, who treated her with insulin drip and IV fluids and she greatly has improved. PAST MEDICAL HISTORY: 1. Diabetes, previous presentation with DKA in 2006. 2. Hypertension. 3. Hypercalcemia. 4. Hyperlipidemia. PAST SURGICAL HISTORY: Not to my knowledge. ALLERGIES TO MEDICATIONS: None. MEDICATIONS: Reviewed and reconciled. REVIEW OF SYSTEMS: As per HPI. LABORATORY VALUES: WBC 23, hemoglobin 11, hematocrit 32, platelets of 247,000. Sodium 140, potassium 3.7, chloride 105, bicarb 20, BUN 27, creatinine 1.0. Hemoglobin A1c of 14.4. Calcium of 10.2. Phos of 2.0. Lipase was 593. PHYSICAL EXAMINATION: GENERAL: Awake and alert. VITAL SIGNS: Blood pressure is 126/58, pulse 96, temperature 98.6, respiratory rate of 17. HEENT: Pupils are equal and reactive to light. Sclerae are anicteric. NECK: No JVD. No thyromegaly. LUNGS: Clear. HEART: Regular rate and rhythm. ABDOMEN: Positive bowel sounds. EXTREMITIES: No clubbing, cyanosis, or edema. DIAGNOSES: 1. Diabetic ketoacidosis. 2. Diabetes, out of control. 3. Noncompliance. 4. Hypertension. 5. Hyperlipidemia. 6. Pancreatitis PLAN: 1. Continue insulin drip until the anion gap is closed. We will convert to Levemir and NovoLog, 24 units Levemir at night and 8 units of Humalog before each meal. 2. NovoLog sliding scale before meals and at bedtime. 3. Electrolytes to be followed and repleted. 4. I will follow lipase. 5. Follow leukocytosis. 6. I will follow the patient during hospital stay. Thank you, Dr. Pereira, for the courtesy of this consultation. Sergio Decker M.D. DR: ABHILASH JOB#: [id number] CC: ELAINE
[2019-04-25] MEDS ORDERED: LORazepam Inj 2mg/ml 1ml IV PRN (23:30)
[2019-04-26 00:15] VITALS: BP 137/61
[2019-04-26] MEDS ORDERED: Albuterol/Ipratropium 3ml neb HHN PRN (01:30)
[2019-04-26] MEDS ORDERED: Morphine Sulfate 4mg/ml Inj (IV USE ONLY) IVP PRN (01:30)
[2019-04-26 04:00] VITALS: BP 155/68
[2019-04-26 06:04] LABS: BASOPHILS % (AUTO) 0.7 % (0.0-2.0); EOSINOPHILS % (AUTO) 0.3 % (0.0-3.0); HEMATOCRIT 29.8 % (37.0-47.0); HEMOGLOBIN 10.6 G/DL (12.0-16.0); LYMPHOCYTES % (AUTO) 14.5 % (20.0-45.0); MEAN CORPUSCULAR VOLUME 85 FL (80-99); MONOCYTES % (AUTO) 7.5 % (1.0-10.0); PLATELET COUNT 187 K/UL (150-450); RED BLOOD COUNT 3.49 M/UL (4.20-5.40); RED CELL DISTRIBUTION WIDTH 11.5 % (11.6-14.8); WHITE BLOOD COUNT 17.7 K/UL (4.8-10.8)
[2019-04-26 06:10] LABS: ALANINE AMINOTRANSFERASE 14 U/L (12-78); ALBUMIN 2.2 G/DL (3.4-5.0); ALBUMIN/GLOBULIN RATIO 0.6 (1.0-2.7); ALKALINE PHOSPHATASE 65 U/L (46-116); ANION GAP 9 mmol/L (5-15); ASPARTATE AMINO TRANSFERASE 14 U/L (15-37); BILIRUBIN,TOTAL 0.2 MG/DL (0.2-1.0); BLOOD UREA NITROGEN 12 mg/dL (7-18); CALCIUM 9.6 MG/DL (8.5-10.1); CARBON DIOXIDE 23 MMOL/L (21-32); CHLORIDE 107 MMOL/L (98-107); CREATININE 0.6 MG/DL (0.55-1.30); POTASSIUM 3.4 MMOL/L (3.5-5.1); SODIUM 139 MMOL/L (136-145)
[2019-04-26] MEDS: NovoLOG Insulin Flexpen SUBQ SCH ×8 (06:16→21:53)
[2019-04-26] MEDS ORDERED: NovoLOG Insulin Flexpen SUBQ SCH (06:30)
[2019-04-26 08:00] VITALS: BP 148/69
[2019-04-26] MEDS: Heparin 5000 units/ml inj SUBQ SCH ×2 (08:54→21:26)
[2019-04-26 12:00] VITALS: BP 143/80
[2019-04-26] MEDS: cefTRIAXone 1 GM in D5W 55 ML IVPB SCH (12:13)
--- NOTE | 2019-04-26 13:19 | Pulmonology Progress Note ---
Assessment/Plan Problems: (1) Diabetic keto-acidosis (2) Acute metabolic encephalopathy (3) UTI (urinary tract infection) Assessment/Plan wbc still high BS at the 200 range continue abx Urine cultures reviewed, Echoli pansensitive check labs in am, if wbc normal she can go home dvt prophylaxis Subjective ROS Limited/Unobtainable: No HEENT: Repors: no symptoms Respiratory: Reports: no symptoms Allergies: Coded Allergies: No Known Allergies (Verified , 11/15/06) Objective Last 24 Hour Vital Signs Date Time Temp Pulse Resp B/P (MAP) Pulse Ox O2 Delivery O2 Flow Rate FiO2 04/26/19 09:00 Room Air 04/26/19 08:00 98.8 81 20 148/69 (95) 95 04/26/19 04:00 98.4 84 16 155/68 (97) 98 04/26/19 00:15 99.6 86 16 137/61 (86) 97 04/25/19 21:00 83 19 139/62 (87) 96 04/25/19 20:00 Room Air 04/25/19 20:00 99.5 88 14 135/113 (120) 97 04/25/19 19:29 83 04/25/19 19:00 95 22 143/61 (88) 98 04/25/19 18:00 80 18 143/61 (88) 98 04/25/19 17:00 80 17 126/71 (89) 98 04/25/19 16:00 82 04/25/19 16:00 Room Air 04/25/19 16:00 98.4 90 18 151/62 (91) 98 04/25/19 15:00 86 17 126/58 (80) 98 04/25/19 14:00 110 22 122/60 (80) 98 Intake and Output 04/25/19 04/26/19 19:00 07:00 Intake Total 1112.8 ml 1000 ml Output Total 860 ml 100 ml Balance 252.8 ml 900 ml Intake Oral 220 ml 400 ml IV Total 892.8 ml 600 ml Output Urine Total 860 ml 100 ml # Voids 10 6 # Bowel Movements 2 Objective General Appearance: WD/WN Lines, tubes and drains: peripheral HEENT: normocephalic, atraumatic Neck: non-tender, normal alignment Respiratory/Chest: chest wall non-tender, lungs clear Breasts: no masses Cardiovascular/Chest: normal rate Extremities: normal range of motion, non-tender Skin Exam: normal pigmentation Microbiology Date/Time Source Procedure Growth Status 04/24/19 19:05 Blood Blood Culture - Preliminary NO GROWTH AFTER 24 HOURS Resulted 04/24/19 18:50 Blood Blood Culture - Preliminary NO GROWTH AFTER 24 HOURS Resulted 04/24/19 17:20 Urine,Clean Catch Urine Culture - Final Escherichia Coli Complete 04/24/19 19:31 Rectum Received Laboratory Tests 04/25/19 18:25: Sodium Level 140, Potassium Level 3.9, Chloride Level 107, Carbon Dioxide Level 22, Anion Gap 11, Blood Urea Nitrogen 17, Creatinine 0.7, Estimat Glomerular Filtration Rate > 60, Glucose Level 247#H, Calcium Level 9.9, Phosphorus Level 1.8L, Magnesium Level 1.9, Total Bilirubin 0.2, Direct Bilirubin < 0.1, Aspartate Amino Transf (AST/SGOT) 14L, Alanine Aminotransferase (ALT/SGPT) 12, Alkaline Phosphatase 69, Total Protein 6.2L, Albumin 2.4L, Triglycerides Level 761H, Cholesterol Level 256H, LDL Cholesterol 118H, HDL Cholesterol 28L, Cholesterol/HDL Ratio 9.1H, Lipase 125, Thyroid Stimulating Hormone (TSH) 0.304L , Free Thyroxine 0.92 04/26/19 04:35: Sodium Level 139, Potassium Level 3.4L, Chloride Level 107, Carbon Dioxide Level 23, Anion Gap 9, Blood Urea Nitrogen 12, Creatinine 0.6, Estimat Glomerular Filtration Rate > 60, Glucose Level 138#H, Calcium Level 9.6, Phosphorus Level 2.0L, Magnesium Level 1.6L, Total Bilirubin 0.2, Aspartate Amino Transf (AST/SGOT) 14L, Alanine Aminotransferase (ALT/SGPT) 14, Alkaline Phosphatase 65, Total Protein 6.2L, Albumin 2.2L, White Blood Count 17.7H, Red Blood Count 3.49L, Hemoglobin 10.6L, Hematocrit 29.8L, Mean Corpuscular Volume 85, Mean Corpuscular Hemoglobin 30.4, Mean Corpuscular Hemoglobin Concent 35.7, Red Cell Distribution Width 11.5L, Platelet Count 187, Mean Platelet Volume 8.3 , Neutrophils (%) (Auto) 77.0H, Lymphocytes (%) (Auto) 14.5L, Monocytes (%) ( Auto) 7.5, Eosinophils (%) (Auto) 0.3, Basophils (%) (Auto) 0.7, Erythrocyte Sedimentation Rate 93H, Calcium (Send out) [Pending], C-Reactive Protein, Quantitative 2.6H, Globulin 4.0, Albumin/Globulin Ratio 0.6L, Parathyroid Hormone (Intact) [Pending] Current Medications Medications (Trade) Dose Ordered Sig/Juan Jose Route PRN Reason Start Time Stop Time Status Last Admin Dose Admin Acetaminophen (Tylenol) 650 mg Q4H PRN ORAL Fever (T>100.5F) 04/26/19 01:30 05/24/19 21:29 Albuterol/ Ipratropium (Albuterol/ Ipratropium) 3 ml Q4H PRN HHN Shortness of Breath 04/26/19 01:30 04/29/19 21:29 Ceftriaxone Sodium 1 gm/ Dextrose 55 ml @ 110 mls/hr Q24H IVPB 04/26/19 12:00 05/02/19 11:59 04/26/19 12:13 Dextrose (Dextrose 50%) 25 ml Q30M PRN IV Hypoglycemia 04/25/19 22:00 05/25/19 20:29 Dextrose (Dextrose 50%) 50 ml Q30M PRN IV Hypoglycemia 04/25/19 22:00 05/25/19 20:29 Heparin Sodium (Porcine) (Heparin 5000 units/ml) 5,000 units EVERY 12 HOURS SUBQ 04/26/19 09:00 05/25/19 08:59 04/26/19 08:54 Insulin Aspart (NovoLOG) BEFORE MEALS AND HS SUBQ 04/26/19 06:30 05/25/19 20:59 04/26/19 12:48 Insulin Aspart (NovoLOG) 8 units NOVOTIAC SUBQ 04/26/19 06:30 05/26/19 06:29 04/26/19 12:48 Insulin Detemir (Levemir) 24 units QHS SUBQ 04/26/19 21:00 05/25/19 20:59 Lorazepam (Ativan 2mg/ml 1ml) 2 mg Q2H PRN IV agitation 04/25/19 23:30 05/01/19 21:29 Morphine Sulfate (Morphine Sulfate) 4 mg Q4H PRN IVP Severe Pain (Pain Scale 7-10) 04/26/19 01:30 05/01/19 21:29 Nitroglycerin (Ntg) 0.4 mg Q5M PRN SL Prn Chest Pain 04/25/19 21:45 05/24/19 21:29 Ondansetron HCl (Zofran) 4 mg Q6H PRN IVP Nausea & Vomiting 04/26/19 03:30 05/24/19 21:29 Polyethylene Glycol (Miralax) 17 gm DAILYPRN PRN ORAL Constipation 04/26/19 21:30 05/24/19 21:29 Sodium Chloride 1,000 ml @ 75 mls/hr [id number] IV 04/25/19 21:45 05/25/19 10:59 04/26/19 12:13 Krista Ramirez MD Apr 26, 2019 13:19
--- NOTE | 2019-04-26 13:21 | CDS Physician Query ---
Clarification is required for compliance, coding accuracy, and to reflect severity of illness for this patient Dear Dr. Leopoldo Long M.D. Date: 04/26/2019 Cream Cheese Maker/CDS Name: Abisai Montalvo HISTORY OF PRESENT ILLNESS: The patient has a history of diabetes. According to the patient's friend at the bedside, the patient has been confused over the last couple of days. The patient has been forgetting some things. ASSESSMENT: This is a 63-year-old female. 1. Altered mental status. 2. Hyperglycemia. 3. Diabetic ketoacidosis. "Altered Mental Status" documented in H&P Please indicate the nature and chronicity of the condition below: [X] Metabolic Encephalopathy [] Toxic Encephalopathy [] Toxic - Metabolic Encephalopathy [] Encephalopathy, Other [] Dementia with Delirium [] Hypoxic encephalopathy [] Posterior reversible encephalopathy syndrome [] Other: [] Not Applicable Present on Admission: [X] Yes [] No [] Clinically Undetermined Physician signature Date Please also document in your Progress Notes and/or Discharge Summary and indicate if the condition was present on admission. MTDD
--- NOTE | 2019-04-26 15:27 | Infectious Diseases Prog Note ---
Assessment/Plan Assessment/Plan Abx: Ceftriaxone 04/24- Assessment: Sepsis vs SIRS Probable UTI -u/a wbc 20-30, nit neg, leuk +2; ucx >100k E.coli (I Macrobid; otherwise S) -CXR: no acute disease -04/24 BCx NTD Afebrile HyperLeukocytosis; improving- probably combination of reactive and probable infection DKA Acute encephalopathy FROILAN, improving Dm2 Plan: -Continue empiric Ceftriaxone #3/5 for UTI -upon discharge can be transition to PO Keflex 500mg tid -f/u cx -Monitor CBC/CMP, temperatures -aspiration precautions Thank you for consulting [facility]. Will continue to follow along with you. Discussed with RN. Subjective Allergies: Coded Allergies: No Known Allergies (Verified , 11/15/06) Subjective afebrile wbc improving Bcx NTD Objective Vital Signs Last 24 Hour Vital Signs Date Time Temp Pulse Resp B/P (MAP) Pulse Ox O2 Delivery O2 Flow Rate FiO2 04/26/19 12:00 97.5 69 18 143/80 (101) 93 04/26/19 09:00 Room Air 04/26/19 08:00 98.8 81 20 148/69 (95) 95 04/26/19 04:00 98.4 84 16 155/68 (97) 98 04/26/19 00:15 99.6 86 16 137/61 (86) 97 04/25/19 21:00 83 19 139/62 (87) 96 04/25/19 20:00 Room Air 04/25/19 20:00 99.5 88 14 135/113 (120) 97 04/25/19 19:29 83 04/25/19 19:00 95 22 143/61 (88) 98 04/25/19 18:00 80 18 143/61 (88) 98 04/25/19 17:00 80 17 126/71 (89) 98 04/25/19 16:00 82 04/25/19 16:00 Room Air 04/25/19 16:00 98.4 90 18 151/62 (91) 98 Height (Feet): 5 Height (Inches): 5.00 Weight (Pounds): 137 Objective General Appearance: WD/WN, alert Lines, tubes and drains: peripheral HEENT: normocephalic, atraumatic Neck: non-tender, normal alignment Respiratory/Chest: chest wall non-tender, lungs clear Breasts: no masses Cardiovascular/Chest: normal peripheral pulses, normal rate Abdomen: normal bowel sounds, non tender Genitourinary/Rectal: normal genital exam, normal prostate exam Extremities: normal range of motion, non-tender Skin Exam: normal pigmentation Neurologic: public weigher II-XII grossly normal Microbiology Date/Time Source Procedure Growth Status 04/24/19 19:05 Blood Blood Culture - Preliminary NO GROWTH AFTER 24 HOURS Resulted 04/24/19 18:50 Blood Blood Culture - Preliminary NO GROWTH AFTER 24 HOURS Resulted 04/24/19 17:20 Urine,Clean Catch Urine Culture - Final Escherichia Coli Complete 04/24/19 19:31 Rectum Received Laboratory Tests Test 04/25/19 18:25 04/26/19 04:35 Sodium Level 140 MMOL/L (136-145) 139 MMOL/L (136-145) Potassium Level 3.9 MMOL/L (3.5-5.1) 3.4 MMOL/L (3.5-5.1) L Chloride Level 107 MMOL/L (98-107) 107 MMOL/L (98-107) Carbon Dioxide Level 22 MMOL/L (21-32) 23 MMOL/L (21-32) Anion Gap 11 mmol/L (5-15) 9 mmol/L (5-15) Blood Urea Nitrogen 17 mg/dL (7-18) 12 mg/dL (7-18) Creatinine 0.7 MG/DL (0.55-1.30) 0.6 MG/DL (0.55-1.30) Estimat Glomerular Filtration Rate > 60 mL/min (>60) > 60 mL/min (>60) Glucose Level 247 MG/DL (74-106) #H 138 MG/DL (74-106) #H Calcium Level 9.9 MG/DL (8.5-10.1) 9.6 MG/DL (8.5-10.1) Phosphorus Level 1.8 MG/DL (2.5-4.9) L 2.0 MG/DL (2.5-4.9) L Magnesium Level 1.9 MG/DL (1.8-2.4) 1.6 MG/DL (1.8-2.4) L Total Bilirubin 0.2 MG/DL (0.2-1.0) 0.2 MG/DL (0.2-1.0) Direct Bilirubin < 0.1 MG/DL (0.0-0.3) Aspartate Amino Transf (AST/SGOT) 14 U/L (15-37) L 14 U/L (15-37) L Alanine Aminotransferase (ALT/SGPT) 12 U/L (12-78) 14 U/L (12-78) Alkaline Phosphatase 69 U/L (46-116) 65 U/L (46-116) Total Protein 6.2 G/DL (6.4-8.2) L 6.2 G/DL (6.4-8.2) L Albumin 2.4 G/DL (3.4-5.0) L 2.2 G/DL (3.4-5.0) L Triglycerides Level 761 MG/DL (30-150) H Cholesterol Level 256 MG/DL (< 200) H LDL Cholesterol 118 mg/dL (<100) H HDL Cholesterol 28 MG/DL (40-60) L Cholesterol/HDL Ratio 9.1 (3.3-4.4) H Lipase 125 U/L (73-393) Thyroid Stimulating Hormone (TSH) 0.304 uiU/mL (0.358-3.740) Free Thyroxine 0.92 NG/DL (0.76-1.46) White Blood Count 17.7 K/UL (4.8-10.8) H Red Blood Count 3.49 M/UL (4.20-5.40) L Hemoglobin 10.6 G/DL (12.0-16.0) L Hematocrit 29.8 % (37.0-47.0) L Mean Corpuscular Volume 85 FL (80-99) Mean Corpuscular Hemoglobin 30.4 PG (27.0-31.0) Mean Corpuscular Hemoglobin Concent 35.7 G/DL (32.0-36.0) Red Cell Distribution Width 11.5 % (11.6-14.8) L Platelet Count 187 K/UL (150-450) Mean Platelet Volume 8.3 FL (6.5-10.1) Neutrophils (%) (Auto) 77.0 % (45.0-75.0) H Lymphocytes (%) (Auto) 14.5 % (20.0-45.0) L Monocytes (%) (Auto) 7.5 % (1.0-10.0) Eosinophils (%) (Auto) 0.3 % (0.0-3.0) Basophils (%) (Auto) 0.7 % (0.0-2.0) Erythrocyte Sedimentation Rate 93 MM/HR (0-30) H Calcium (Send out) Pending C-Reactive Protein, Quantitative 2.6 mg/dL (0.00-0.90) H Globulin 4.0 g/dL Albumin/Globulin Ratio 0.6 (1.0-2.7) L Parathyroid Hormone (Intact) Pending Current Medications Medications (Trade) Dose Ordered Sig/Juan Jose Route PRN Reason Start Time Stop Time Status Last Admin Dose Admin Acetaminophen (Tylenol) 650 mg Q4H PRN ORAL Fever (T>100.5F) 04/26/19 01:30 05/24/19 21:29 Albuterol/ Ipratropium (Albuterol/ Ipratropium) 3 ml Q4H PRN HHN Shortness of Breath 04/26/19 01:30 04/29/19 21:29 Ceftriaxone Sodium 1 gm/ Dextrose 55 ml @ 110 mls/hr Q24H IVPB 04/26/19 12:00 05/02/19 11:59 04/26/19 12:13 Dextrose (Dextrose 50%) 25 ml Q30M PRN IV Hypoglycemia 04/25/19 22:00 05/25/19 20:29 Dextrose (Dextrose 50%) 50 ml Q30M PRN IV Hypoglycemia 04/25/19 22:00 05/25/19 20:29 Heparin Sodium (Porcine) (Heparin 5000 units/ml) 5,000 units EVERY 12 HOURS SUBQ 04/26/19 09:00 05/25/19 08:59 04/26/19 08:54 Insulin Aspart (NovoLOG) BEFORE MEALS AND HS SUBQ 04/26/19 06:30 05/25/19 20:59 04/26/19 12:48 Insulin Aspart (NovoLOG) 8 units NOVOTIAC SUBQ 04/26/19 06:30 05/26/19 06:29 04/26/19 12:48 Insulin Detemir (Levemir) 24 units QHS SUBQ 04/26/19 21:00 05/25/19 20:59 Lorazepam (Ativan 2mg/ml 1ml) 2 mg Q2H PRN IV agitation 04/25/19 23:30 05/01/19 21:29 Morphine Sulfate (Morphine Sulfate) 4 mg Q4H PRN IVP Severe Pain (Pain Scale 7-10) 04/26/19 01:30 05/01/19 21:29 Nitroglycerin (Ntg) 0.4 mg Q5M PRN SL Prn Chest Pain 04/25/19 21:45 05/24/19 21:29 Ondansetron HCl (Zofran) 4 mg Q6H PRN IVP Nausea & Vomiting 04/26/19 03:30 05/24/19 21:29 Polyethylene Glycol (Miralax) 17 gm DAILYPRN PRN ORAL Constipation 04/26/19 21:30 05/24/19 21:29 Sodium Chloride 1,000 ml @ 75 mls/hr [id number] IV 04/25/19 21:45 05/25/19 10:59 04/26/19 12:13 Zahida Valero M.D. Apr 26, 2019 15:27
[2019-04-26 16:00] VITALS: BP 163/77
--- NOTE | 2019-04-26 16:06 | Internal Med Progress Note ---
Subjective Physician Name Mike Pereira Attending Physician Mike Pereira MD Current Medications Medications (Trade) Dose Ordered Sig/Juan Jose Route PRN Reason Start Time Stop Time Status Last Admin Dose Admin Acetaminophen (Tylenol) 650 mg Q4H PRN ORAL Fever (T>100.5F) 04/26/19 01:30 05/24/19 21:29 Albuterol/ Ipratropium (Albuterol/ Ipratropium) 3 ml Q4H PRN HHN Shortness of Breath 04/26/19 01:30 04/29/19 21:29 Ceftriaxone Sodium 1 gm/ Dextrose 55 ml @ 110 mls/hr Q24H IVPB 04/26/19 12:00 05/02/19 11:59 04/26/19 12:13 Dextrose (Dextrose 50%) 25 ml Q30M PRN IV Hypoglycemia 04/25/19 22:00 05/25/19 20:29 Dextrose (Dextrose 50%) 50 ml Q30M PRN IV Hypoglycemia 04/25/19 22:00 05/25/19 20:29 Heparin Sodium (Porcine) (Heparin 5000 units/ml) 5,000 units EVERY 12 HOURS SUBQ 04/26/19 09:00 05/25/19 08:59 04/26/19 08:54 Insulin Aspart (NovoLOG) BEFORE MEALS AND HS SUBQ 04/26/19 06:30 05/25/19 20:59 04/26/19 12:48 Insulin Aspart (NovoLOG) 8 units NOVOTIAC SUBQ 04/26/19 06:30 05/26/19 06:29 04/26/19 12:48 Insulin Detemir (Levemir) 24 units QHS SUBQ 04/26/19 21:00 05/25/19 20:59 Lorazepam (Ativan 2mg/ml 1ml) 2 mg Q2H PRN IV agitation 04/25/19 23:30 05/01/19 21:29 Morphine Sulfate (Morphine Sulfate) 4 mg Q4H PRN IVP Severe Pain (Pain Scale 7-10) 04/26/19 01:30 05/01/19 21:29 Nitroglycerin (Ntg) 0.4 mg Q5M PRN SL Prn Chest Pain 04/25/19 21:45 05/24/19 21:29 Ondansetron HCl (Zofran) 4 mg Q6H PRN IVP Nausea & Vomiting 04/26/19 03:30 05/24/19 21:29 Polyethylene Glycol (Miralax) 17 gm DAILYPRN PRN ORAL Constipation 04/26/19 21:30 05/24/19 21:29 Sodium Chloride 1,000 ml @ 75 mls/hr [id number] IV 04/25/19 21:45 05/25/19 10:59 04/26/19 12:13 Allergies: Coded Allergies: No Known Allergies (Verified , 11/15/06) Subjective awake, alert, responsive, No CP or SOB, Feeling Better. Objective Last Vital Signs Date Time Temp Pulse Resp B/P (MAP) Pulse Ox O2 Delivery O2 Flow Rate FiO2 04/26/19 12:00 97.5 69 18 143/80 (101) 93 04/26/19 09:00 Room Air Laboratory Tests Test 04/25/19 18:25 04/26/19 04:35 Sodium Level 140 MMOL/L (136-145) 139 MMOL/L (136-145) Potassium Level 3.9 MMOL/L (3.5-5.1) 3.4 MMOL/L (3.5-5.1) L Chloride Level 107 MMOL/L (98-107) 107 MMOL/L (98-107) Carbon Dioxide Level 22 MMOL/L (21-32) 23 MMOL/L (21-32) Anion Gap 11 mmol/L (5-15) 9 mmol/L (5-15) Blood Urea Nitrogen 17 mg/dL (7-18) 12 mg/dL (7-18) Creatinine 0.7 MG/DL (0.55-1.30) 0.6 MG/DL (0.55-1.30) Estimat Glomerular Filtration Rate > 60 mL/min (>60) > 60 mL/min (>60) Glucose Level 247 MG/DL (74-106) #H 138 MG/DL (74-106) #H Calcium Level 9.9 MG/DL (8.5-10.1) 9.6 MG/DL (8.5-10.1) Phosphorus Level 1.8 MG/DL (2.5-4.9) L 2.0 MG/DL (2.5-4.9) L Magnesium Level 1.9 MG/DL (1.8-2.4) 1.6 MG/DL (1.8-2.4) L Total Bilirubin 0.2 MG/DL (0.2-1.0) 0.2 MG/DL (0.2-1.0) Direct Bilirubin < 0.1 MG/DL (0.0-0.3) Aspartate Amino Transf (AST/SGOT) 14 U/L (15-37) L 14 U/L (15-37) L Alanine Aminotransferase (ALT/SGPT) 12 U/L (12-78) 14 U/L (12-78) Alkaline Phosphatase 69 U/L (46-116) 65 U/L (46-116) Total Protein 6.2 G/DL (6.4-8.2) L 6.2 G/DL (6.4-8.2) L Albumin 2.4 G/DL (3.4-5.0) L 2.2 G/DL (3.4-5.0) L Triglycerides Level 761 MG/DL (30-150) H Cholesterol Level 256 MG/DL (< 200) H LDL Cholesterol 118 mg/dL (<100) H HDL Cholesterol 28 MG/DL (40-60) L Cholesterol/HDL Ratio 9.1 (3.3-4.4) H Lipase 125 U/L (73-393) Thyroid Stimulating Hormone (TSH) 0.304 uiU/mL (0.358-3.740) Free Thyroxine 0.92 NG/DL (0.76-1.46) White Blood Count 17.7 K/UL (4.8-10.8) H Red Blood Count 3.49 M/UL (4.20-5.40) L Hemoglobin 10.6 G/DL (12.0-16.0) L Hematocrit 29.8 % (37.0-47.0) L Mean Corpuscular Volume 85 FL (80-99) Mean Corpuscular Hemoglobin 30.4 PG (27.0-31.0) Mean Corpuscular Hemoglobin Concent 35.7 G/DL (32.0-36.0) Red Cell Distribution Width 11.5 % (11.6-14.8) L Platelet Count 187 K/UL (150-450) Mean Platelet Volume 8.3 FL (6.5-10.1) Neutrophils (%) (Auto) 77.0 % (45.0-75.0) H Lymphocytes (%) (Auto) 14.5 % (20.0-45.0) L Monocytes (%) (Auto) 7.5 % (1.0-10.0) Eosinophils (%) (Auto) 0.3 % (0.0-3.0) Basophils (%) (Auto) 0.7 % (0.0-2.0) Erythrocyte Sedimentation Rate 93 MM/HR (0-30) H Calcium (Send out) Pending C-Reactive Protein, Quantitative 2.6 mg/dL (0.00-0.90) H Globulin 4.0 g/dL Albumin/Globulin Ratio 0.6 (1.0-2.7) L Parathyroid Hormone (Intact) Pending Microbiology Date/Time Source Procedure Growth Status 04/24/19 19:05 Blood Blood Culture - Preliminary NO GROWTH AFTER 24 HOURS Resulted 04/24/19 18:50 Blood Blood Culture - Preliminary NO GROWTH AFTER 24 HOURS Resulted 04/24/19 17:20 Urine,Clean Catch Urine Culture - Final Escherichia Coli Complete 04/24/19 19:31 Rectum Received Intake and Output 04/25/19 04/26/19 18:59 06:59 Intake Total 1187.8 ml 1077 ml Output Total 860 ml 200 ml Balance 327.8 ml 877 ml Intake Oral 220 ml 400 ml IV Total 967.8 ml 677 ml Output Urine Total 860 ml 200 ml # Voids 12 7 # Bowel Movements 2 Objective General: No acute distress, awake and alert HEENT: NCAT, sclera anicteric, PERRL, EOMI. Neck: Supple, no significant jugular venous distention, Lungs: Good inspiratory effort, clear to auscultation bilaterally, no Wheeze or Rales. Heart: Regular rate and rhythm, normal S1/S2, no murmur. Abdomen: soft, nontender, nondistended. Normoactive bowel sounds. / Rectal: Refused and deferred. Extremities: No Cyanosis , clubbing or edema. Neuro: A&O x 3, Able to move all extremities Skin: warm, no rashes or lesions Psych: Normal mood and affect Assessment/Plan Assessment/Plan ASSESSMENT: This is a 63-year-old female. 1. Altered mental status most likely due to toxic metabolic encephalopathy. 2. Hyperglycemia. 3. Diabetic ketoacidosis. 4. Leukocytosis. 5. E. Coli Urinary tract infection. 6. Diabetes type 2. 7. Hypercholesterolemia. TREATMENT: 1. Hyperglycemia/diabetic ketoacidosis. The patient has been placed on insulin drip. The patient is currently in the intensive care unit. An Endocrinology consultation has been obtained with Dr. Sergio Decker. We will follow recommendations of Endocrinology. 2. Urinary tract infection/leukocytosis. A urine culture showed E. Coli sensitive to ceftriaxone. 3. Altered mental status is probably secondary to diabetic ketoacidosis. 4. Diabetes type 2. 5. Hypertension. The patient is currently hypotensive. 6. Hypercholesterolemia. Continue gemfibrozil as above. Monitor Cultures Abx: Mike Dickens MD Apr 26, 2019 16:06
[2019-04-26 20:00] VITALS: BP 168/84
[2019-04-26] MEDS: Levemir Flexpen SUBQ SCH (21:23)
[2019-04-26] MEDS ORDERED: Miralax 17gm pkt ORAL PRN (21:30)
[2019-04-27] VITALS (7 sets, daily range): BP systolic 154–175; BP diastolic 81–93
[2019-04-27 05:49] LABS: BASOPHILS % (AUTO) 0.7 % (0.0-2.0); EOSINOPHILS % (AUTO) 0.6 % (0.0-3.0); HEMATOCRIT 32.2 % (37.0-47.0); HEMOGLOBIN 10.9 G/DL (12.0-16.0); LYMPHOCYTES % (AUTO) 18.3 % (20.0-45.0); MEAN CORPUSCULAR VOLUME 88 FL (80-99); MONOCYTES % (AUTO) 7.9 % (1.0-10.0); NEUTROPHILS % (AUTO) 72.5 % (45.0-75.0); PLATELET COUNT 198 K/UL (150-450); RED BLOOD COUNT 3.67 M/UL (4.20-5.40); RED CELL DISTRIBUTION WIDTH 12.2 % (11.6-14.8); WHITE BLOOD COUNT 14.7 K/UL (4.8-10.8)
[2019-04-27 06:05] LABS: ALANINE AMINOTRANSFERASE 15 U/L (12-78); ALBUMIN 2.3 G/DL (3.4-5.0); ALBUMIN/GLOBULIN RATIO 0.5 (1.0-2.7); ALKALINE PHOSPHATASE 65 U/L (46-116); ANION GAP 8 mmol/L (5-15); ASPARTATE AMINO TRANSFERASE 11 U/L (15-37); BILIRUBIN,TOTAL 0.2 MG/DL (0.2-1.0); BLOOD UREA NITROGEN 8 mg/dL (7-18); CALCIUM 9.7 MG/DL (8.5-10.1); CARBON DIOXIDE 26 MMOL/L (21-32); CHLORIDE 104 MMOL/L (98-107); CREATININE 0.6 MG/DL (0.55-1.30); PHOSPHORUS 2.5 MG/DL (2.5-4.9); POTASSIUM 3.4 MMOL/L (3.5-5.1); SODIUM 138 MMOL/L (136-145)
[2019-04-27] MEDS: NovoLOG Insulin Flexpen SUBQ SCH ×7 (06:39→20:55)
--- NOTE | 2019-04-27 07:42 | Pulmonology Progress Note ---
Assessment/Plan Problems: (1) Diabetic keto-acidosis (2) Acute metabolic encephalopathy (3) UTI (urinary tract infection) Assessment/Plan wbc still high, decreasing to 14 BS at the 200 range continue abx Urine cultures reviewed, Echoli pansensitive check labs in am, if wbc normal she can go home dvt prophylaxis will keep at least one more day until wbc is wnl, Subjective ROS Limited/Unobtainable: No Constitutional: Reports: no symptoms HEENT: Repors: no symptoms Respiratory: Reports: no symptoms Allergies: Coded Allergies: No Known Allergies (Verified , 11/15/06) Objective Last 24 Hour Vital Signs Date Time Temp Pulse Resp B/P (MAP) Pulse Ox O2 Delivery O2 Flow Rate FiO2 04/27/19 04:00 98.9 93 18 165/93 (117) 97 04/27/19 00:00 99.1 99 19 163/90 (114) 98 04/26/19 21:00 Room Air 04/26/19 20:10 82 18 96 Room Air 04/26/19 20:00 98.8 94 19 168/84 (112) 97 04/26/19 16:00 98.8 85 20 163/77 (105) 96 04/26/19 12:00 97.5 69 18 143/80 (101) 93 04/26/19 09:00 Room Air 04/26/19 08:00 98.8 81 20 148/69 (95) 95 Intake and Output 04/26/19 04/27/19 19:00 07:00 Intake Total 475 ml 850 ml Balance 475 ml 850 ml Intake Oral 400 ml 100 ml IV Total 75 ml 750 ml # Voids 4 8 # Bowel Movements 1 1 Objective General Appearance: WD/WN Lines, tubes and drains: peripheral HEENT: normocephalic, atraumatic Neck: non-tender, normal alignment Respiratory/Chest: chest wall non-tender, lungs clear Breasts: no masses Cardiovascular/Chest: normal rate Extremities: normal range of motion, non-tender Skin Exam: normal pigmentation Microbiology Date/Time Source Procedure Growth Status 04/24/19 19:05 Blood Blood Culture - Preliminary NO GROWTH AFTER 48 HOURS Resulted 04/24/19 18:50 Blood Blood Culture - Preliminary NO GROWTH AFTER 48 HOURS Resulted 04/24/19 19:31 Nasal Nares MRSA Culture - Final Staphylococcus Aureus - Mrsa Complete 04/24/19 17:20 Urine,Clean Catch Urine Culture - Final Escherichia Coli Complete 04/24/19 19:31 Rectum - Final NO CARBAPENEM-RESISTANT ENTEROBACTERI... Complete 04/24/19 19:31 Rectum VRE Culture - Final NO VANCOMYCIN RESISTANT ENTEROCOCCUS ... Complete Laboratory Tests 04/27/19 05:00: White Blood Count 14.7H, Red Blood Count 3.67L, Hemoglobin 10.9L, Hematocrit 32.2L, Mean Corpuscular Volume 88, Mean Corpuscular Hemoglobin 29.6, Mean Corpuscular Hemoglobin Concent 33.8, Red Cell Distribution Width 12.2, Platelet Count 198, Mean Platelet Volume 9.0, Neutrophils (%) (Auto) 72.5, Lymphocytes (% ) (Auto) 18.3L, Monocytes (%) (Auto) 7.9, Eosinophils (%) (Auto) 0.6, Basophils (%) (Auto) 0.7, Erythrocyte Sedimentation Rate 95H, Sodium Level 138, Potassium Level 3.4L, Chloride Level 104, Carbon Dioxide Level 26, Anion Gap 8, Blood Urea Nitrogen 8, Creatinine 0.6, Estimat Glomerular Filtration Rate > 60, Glucose Level 202H, Calcium Level 9.7, Phosphorus Level 2.5, Magnesium Level 1.8 , Total Bilirubin 0.2, Aspartate Amino Transf (AST/SGOT) 11L, Alanine Aminotransferase (ALT/SGPT) 15, Alkaline Phosphatase 65, C-Reactive Protein, Quantitative 1.9H, Total Protein 6.5, Albumin 2.3L, Globulin 4.2, Albumin/ Globulin Ratio 0.5L Current Medications Medications (Trade) Dose Ordered Sig/Juan Jose Route PRN Reason Start Time Stop Time Status Last Admin Dose Admin Acetaminophen (Tylenol) 650 mg Q4H PRN ORAL Fever (T>100.5F) 04/26/19 01:30 05/24/19 21:29 Albuterol/ Ipratropium (Albuterol/ Ipratropium) 3 ml Q4H PRN HHN Shortness of Breath 04/26/19 01:30 04/29/19 21:29 Ceftriaxone Sodium 1 gm/ Dextrose 55 ml @ 110 mls/hr Q24H IVPB 04/26/19 12:00 05/02/19 11:59 04/26/19 12:13 Dextrose (Dextrose 50%) 25 ml Q30M PRN IV Hypoglycemia 04/25/19 22:00 05/25/19 20:29 Dextrose (Dextrose 50%) 50 ml Q30M PRN IV Hypoglycemia 04/25/19 22:00 05/25/19 20:29 Heparin Sodium (Porcine) (Heparin 5000 units/ml) 5,000 units EVERY 12 HOURS SUBQ 04/26/19 09:00 05/25/19 08:59 04/26/19 21:26 Insulin Aspart (NovoLOG) BEFORE MEALS AND HS SUBQ 04/26/19 06:30 05/25/19 20:59 04/27/19 06:39 Insulin Aspart (NovoLOG) 10 units NOVOTIAC SUBQ 04/27/19 11:50 05/26/19 06:29 Insulin Detemir (Levemir) 24 units QHS SUBQ 04/26/19 21:00 05/25/19 20:59 04/26/19 21:23 Lorazepam (Ativan 2mg/ml 1ml) 2 mg Q2H PRN IV agitation 04/25/19 23:30 05/01/19 21:29 Morphine Sulfate (Morphine Sulfate) 4 mg Q4H PRN IVP Severe Pain (Pain Scale 7-10) 04/26/19 01:30 05/01/19 21:29 Nitroglycerin (Ntg) 0.4 mg Q5M PRN SL Prn Chest Pain 04/25/19 21:45 05/24/19 21:29 Ondansetron HCl (Zofran) 4 mg Q6H PRN IVP Nausea & Vomiting 04/26/19 03:30 05/24/19 21:29 Polyethylene Glycol (Miralax) 17 gm DAILYPRN PRN ORAL Constipation 04/26/19 21:30 05/24/19 21:29 Sodium Chloride 1,000 ml @ 75 mls/hr [id number] IV 04/25/19 21:45 05/25/19 10:59 04/27/19 03:58 Krista Ramirez MD Apr 27, 2019 07:42
--- NOTE | 2019-04-27 09:29 | General Progress Note ---
Assessment/Plan Problem List: (1) Diabetic keto-acidosis ICD Codes: E11.10 - Type 2 diabetes mellitus with ketoacidosis without coma SNOMED: 93552990, [id number] (2) Diabetes mellitus ICD Codes: E11.9 - Type 2 diabetes mellitus without complications SNOMED: 55521465 Assessment/Plan: continue Levemir 24 units qhs increase Novolog to 10 units ac tid + NISS all diabetic supplies ordered to her pharmacy and Tim already picked them up Subjective Allergies: Coded Allergies: No Known Allergies (Verified , 11/15/06) All Systems: reviewed and negative except above Subjective events noted she is doing better fasting glucose is stable mealtime glucose is elevated Item Value Date Time Bedside Blood Glucose 173 mg/dl H 04/27/19 0640 Bedside Blood Glucose 362 mg/dl H 04/26/19 2153 Bedside Blood Glucose 330 mg/dl H 04/26/19 1630 Bedside Blood Glucose 230 mg/dl H 04/26/19 1248 Objective Last 24 Hour Vital Signs Date Time Temp Pulse Resp B/P (MAP) Pulse Ox O2 Delivery O2 Flow Rate FiO2 04/27/19 08:22 Room Air 04/27/19 04:00 98.9 93 18 165/93 (117) 97 04/27/19 00:00 99.1 99 19 163/90 (114) 98 04/26/19 21:00 Room Air 04/26/19 20:10 82 18 96 Room Air 04/26/19 20:00 98.8 94 19 168/84 (112) 97 04/26/19 16:00 98.8 85 20 163/77 (105) 96 04/26/19 12:00 97.5 69 18 143/80 (101) 93 Intake and Output 04/26/19 04/27/19 19:00 07:00 Intake Total 475 ml 850 ml Balance 475 ml 850 ml Intake Oral 400 ml 100 ml IV Total 75 ml 750 ml # Voids 4 8 # Bowel Movements 1 1 Laboratory Tests 04/27/19 05:00: White Blood Count 14.7H, Red Blood Count 3.67L, Hemoglobin 10.9L, Hematocrit 32.2L, Mean Corpuscular Volume 88, Mean Corpuscular Hemoglobin 29.6, Mean Corpuscular Hemoglobin Concent 33.8, Red Cell Distribution Width 12.2, Platelet Count 198, Mean Platelet Volume 9.0, Neutrophils (%) (Auto) 72.5, Lymphocytes (% ) (Auto) 18.3L, Monocytes (%) (Auto) 7.9, Eosinophils (%) (Auto) 0.6, Basophils (%) (Auto) 0.7, Erythrocyte Sedimentation Rate 95H, Sodium Level 138, Potassium Level 3.4L, Chloride Level 104, Carbon Dioxide Level 26, Anion Gap 8, Blood Urea Nitrogen 8, Creatinine 0.6, Estimat Glomerular Filtration Rate > 60, Glucose Level 202H, Calcium Level 9.7, Phosphorus Level 2.5, Magnesium Level 1.8 , Total Bilirubin 0.2, Aspartate Amino Transf (AST/SGOT) 11L, Alanine Aminotransferase (ALT/SGPT) 15, Alkaline Phosphatase 65, C-Reactive Protein, Quantitative 1.9H, Total Protein 6.5, Albumin 2.3L, Globulin 4.2, Albumin/ Globulin Ratio 0.5L Height (Feet): 5 Height (Inches): 5.00 Weight (Pounds): 138 General Appearance: no apparent distress Neck: normal alignment Cardiovascular: normal rate Respiratory/Chest: lungs clear Abdomen: normal bowel sounds Pelvis: normal external exam Objective Current Medications Medications (Trade) Dose Ordered Sig/Juan Jose Route PRN Reason Start Time Stop Time Status Last Admin Dose Admin Acetaminophen (Tylenol) 650 mg Q4H PRN ORAL Fever (T>100.5F) 04/26/19 01:30 05/24/19 21:29 Albuterol/ Ipratropium (Albuterol/ Ipratropium) 3 ml Q4H PRN HHN Shortness of Breath 04/26/19 01:30 04/29/19 21:29 Amlodipine Besylate (Norvasc) 2.5 mg EVERY 12 HOURS ORAL 04/27/19 09:00 05/27/19 08:59 Ceftriaxone Sodium 1 gm/ Dextrose 55 ml @ 110 mls/hr Q24H IVPB 04/26/19 12:00 05/02/19 11:59 04/26/19 12:13 Dextrose (Dextrose 50%) 25 ml Q30M PRN IV Hypoglycemia 04/25/19 22:00 05/25/19 20:29 Dextrose (Dextrose 50%) 50 ml Q30M PRN IV Hypoglycemia 04/25/19 22:00 05/25/19 20:29 Heparin Sodium (Porcine) (Heparin 5000 units/ml) 5,000 units EVERY 12 HOURS SUBQ 04/26/19 09:00 05/25/19 08:59 04/26/19 21:26 Insulin Aspart (NovoLOG) BEFORE MEALS AND HS SUBQ 04/26/19 06:30 05/25/19 20:59 04/27/19 06:39 Insulin Aspart (NovoLOG) 10 units NOVOTIAC SUBQ 04/27/19 11:50 05/26/19 06:29 Insulin Detemir (Levemir) 24 units QHS SUBQ 04/26/19 21:00 05/25/19 20:59 04/26/19 21:23 Lisinopril (ZestriL) 10 mg DAILY ORAL 04/27/19 09:00 05/27/19 08:59 Lorazepam (Ativan 2mg/ml 1ml) 2 mg Q2H PRN IV agitation 04/25/19 23:30 05/01/19 21:29 Morphine Sulfate (Morphine Sulfate) 4 mg Q4H PRN IVP Severe Pain (Pain Scale 7-10) 04/26/19 01:30 05/01/19 21:29 Nitroglycerin (Ntg) 0.4 mg Q5M PRN SL Prn Chest Pain 04/25/19 21:45 05/24/19 21:29 Ondansetron HCl (Zofran) 4 mg Q6H PRN IVP Nausea & Vomiting 04/26/19 03:30 05/24/19 21:29 Polyethylene Glycol (Miralax) 17 gm DAILYPRN PRN ORAL Constipation 04/26/19 21:30 05/24/19 21:29 Sodium Chloride 1,000 ml @ 75 mls/hr [id number] IV 04/25/19 21:45 05/25/19 10:59 04/27/19 03:58 Sergio Decker MD Apr 27, 2019 09:29
[2019-04-27] MEDS: Lisinopril 10mg tab ORAL SCH (09:39)
[2019-04-27] MEDS: Heparin 5000 units/ml inj SUBQ SCH ×2 (09:40→20:49)
[2019-04-27] MEDS: cefTRIAXone 1 GM in D5W 55 ML IVPB SCH (12:00)
[2019-04-27] MEDS ORDERED: 1/2 NS 1000ml IV ONE ×2 (13:40→14:08)
[2019-04-27] MEDS ORDERED: NS 275ml ONE (14:08)
[2019-04-27] MEDS ORDERED: Tubing IV Secondary IV ONE (14:08)
--- NOTE | 2019-04-27 14:52 | Internal Med Progress Note ---
Subjective Date of Service: Apr 27, 2019 Physician Name Leopoldo Long Attending Physician Mike Pereira MD Current Medications Medications (Trade) Dose Ordered Sig/Juan Jose Route PRN Reason Start Time Stop Time Status Last Admin Dose Admin Acetaminophen (Tylenol) 650 mg Q4H PRN ORAL Fever (T>100.5F) 04/26/19 01:30 05/24/19 21:29 Albuterol/ Ipratropium (Albuterol/ Ipratropium) 3 ml Q4H PRN HHN Shortness of Breath 04/26/19 01:30 04/29/19 21:29 Amlodipine Besylate (Norvasc) 2.5 mg EVERY 12 HOURS ORAL 04/27/19 09:00 05/27/19 08:59 04/27/19 09:39 Ceftriaxone Sodium 1 gm/ Dextrose 55 ml @ 110 mls/hr Q24H IVPB 04/26/19 12:00 05/02/19 11:59 04/27/19 12:00 Dextrose (Dextrose 50%) 25 ml Q30M PRN IV Hypoglycemia 04/25/19 22:00 05/25/19 20:29 Dextrose (Dextrose 50%) 50 ml Q30M PRN IV Hypoglycemia 04/25/19 22:00 05/25/19 20:29 Heparin Sodium (Porcine) (Heparin 5000 units/ml) 5,000 units EVERY 12 HOURS SUBQ 04/26/19 09:00 05/25/19 08:59 04/27/19 09:40 Insulin Aspart (NovoLOG) BEFORE MEALS AND HS SUBQ 04/26/19 06:30 05/25/19 20:59 04/27/19 11:46 Insulin Aspart (NovoLOG) 10 units NOVOTIAC SUBQ 04/27/19 11:50 05/26/19 06:29 04/27/19 12:12 Insulin Detemir (Levemir) 24 units QHS SUBQ 04/26/19 21:00 05/25/19 20:59 04/26/19 21:23 Lisinopril (ZestriL) 10 mg DAILY ORAL 04/27/19 09:00 05/27/19 08:59 04/27/19 09:39 Lorazepam (Ativan 2mg/ml 1ml) 2 mg Q2H PRN IV agitation 04/25/19 23:30 05/01/19 21:29 Morphine Sulfate (Morphine Sulfate) 4 mg Q4H PRN IVP Severe Pain (Pain Scale 7-10) 04/26/19 01:30 05/01/19 21:29 Nitroglycerin (Ntg) 0.4 mg Q5M PRN SL Prn Chest Pain 04/25/19 21:45 05/24/19 21:29 Ondansetron HCl (Zofran) 4 mg Q6H PRN IVP Nausea & Vomiting 04/26/19 03:30 05/24/19 21:29 Polyethylene Glycol (Miralax) 17 gm DAILYPRN PRN ORAL Constipation 04/26/19 21:30 05/24/19 21:29 Sodium Chloride 1,000 ml @ 75 mls/hr [id number] IV 04/25/19 21:45 05/25/19 10:59 04/27/19 14:38 Allergies: Coded Allergies: No Known Allergies (Verified , 11/15/06) ROS Limited/Unobtainable: No Constitutional: Reports: no symptoms HEENT: Reports: no symptoms Cardiovascular: Reports: no symptoms Respiratory: Reports: no symptoms Gastrointestinal/Abdominal: Reports: no symptoms Genitourinary: Reports: no symptoms Neurologic/Psychiatric: Reports: no symptoms Subjective 63 YO F admitted with altered mental status. Now DKA and UTI. Cover for Int thea-Dr Pereira Objective Last Vital Signs Date Time Temp Pulse Resp B/P (MAP) Pulse Ox O2 Delivery O2 Flow Rate FiO2 04/27/19 12:00 98.2 87 18 175/81 (112) 97 04/27/19 08:22 Room Air Laboratory Tests Test 04/27/19 05:00 White Blood Count 14.7 K/UL (4.8-10.8) H Red Blood Count 3.67 M/UL (4.20-5.40) L Hemoglobin 10.9 G/DL (12.0-16.0) L Hematocrit 32.2 % (37.0-47.0) L Mean Corpuscular Volume 88 FL (80-99) Mean Corpuscular Hemoglobin 29.6 PG (27.0-31.0) Mean Corpuscular Hemoglobin Concent 33.8 G/DL (32.0-36.0) Red Cell Distribution Width 12.2 % (11.6-14.8) Platelet Count 198 K/UL (150-450) Mean Platelet Volume 9.0 FL (6.5-10.1) Neutrophils (%) (Auto) 72.5 % (45.0-75.0) Lymphocytes (%) (Auto) 18.3 % (20.0-45.0) L Monocytes (%) (Auto) 7.9 % (1.0-10.0) Eosinophils (%) (Auto) 0.6 % (0.0-3.0) Basophils (%) (Auto) 0.7 % (0.0-2.0) Erythrocyte Sedimentation Rate 95 MM/HR (0-30) H Sodium Level 138 MMOL/L (136-145) Potassium Level 3.4 MMOL/L (3.5-5.1) L Chloride Level 104 MMOL/L (98-107) Carbon Dioxide Level 26 MMOL/L (21-32) Anion Gap 8 mmol/L (5-15) Blood Urea Nitrogen 8 mg/dL (7-18) Creatinine 0.6 MG/DL (0.55-1.30) Estimat Glomerular Filtration Rate > 60 mL/min (>60) Glucose Level 202 MG/DL (74-106) H Calcium Level 9.7 MG/DL (8.5-10.1) Phosphorus Level 2.5 MG/DL (2.5-4.9) Magnesium Level 1.8 MG/DL (1.8-2.4) Total Bilirubin 0.2 MG/DL (0.2-1.0) Aspartate Amino Transf (AST/SGOT) 11 U/L (15-37) L Alanine Aminotransferase (ALT/SGPT) 15 U/L (12-78) Alkaline Phosphatase 65 U/L (46-116) C-Reactive Protein, Quantitative 1.9 mg/dL (0.00-0.90) H Total Protein 6.5 G/DL (6.4-8.2) Albumin 2.3 G/DL (3.4-5.0) L Globulin 4.2 g/dL Albumin/Globulin Ratio 0.5 (1.0-2.7) L Microbiology Date/Time Source Procedure Growth Status 04/24/19 19:05 Blood Blood Culture - Preliminary NO GROWTH AFTER 48 HOURS Resulted 04/24/19 18:50 Blood Blood Culture - Preliminary NO GROWTH AFTER 48 HOURS Resulted 04/24/19 19:31 Nasal Nares MRSA Culture - Final Staphylococcus Aureus - Mrsa Complete 04/24/19 17:20 Urine,Clean Catch Urine Culture - Final Escherichia Coli Complete 04/24/19 19:31 Rectum - Final NO CARBAPENEM-RESISTANT ENTEROBACTERI... Complete 04/24/19 19:31 Rectum VRE Culture - Final NO VANCOMYCIN RESISTANT ENTEROCOCCUS ... Complete Intake and Output 04/26/19 04/27/19 19:00 07:00 Intake Total 475 ml 850 ml Balance 475 ml 850 ml Intake Oral 400 ml 100 ml IV Total 75 ml 750 ml # Voids 4 8 # Bowel Movements 1 1 Objective PHYSICAL EXAMINATION: GENERAL: The patient is well-developed and well-nourished female, in no apparent distress. The patient was noted to be confused. HEENT: Eyes, pupils are equal and responsive to light and accommodation. Extraocular muscles are intact. NECK: Supple. No lymphadenopathy. CHEST: Lungs are clear to auscultation bilaterally without wheezes or rales. CARDIOVASCULAR: Regular rate. S1 and S2 are normal without murmurs, rubs, or gallops. ABDOMEN: Soft, nontender, nondistended. Positive bowel sounds. No evidence of hepatosplenomegaly. Currently, no rebound or guarding noted. EXTREMITIES: Negative for clubbing, cyanosis, or edema. RECTAL: Not performed. GENITAL: Not performed. NEUROLOGIC: Cranial nerves II to XII are grossly intact without focal deficits. Motor strength is 5/5 bilaterally. Deep tendon reflexes are 2+ plantar. Assessment/Plan Assessment/Plan ASSESSMENT: This is a 63-year-old female. 1. Altered mental status. 2. Hyperglycemia. 3. Diabetic ketoacidosis. 4. Leukocytosis. 5. Urinary tract infection=E. Coli 6. Diabetes type 2. 7. Hypertension 8. Hypercholesterolemia. TREATMENT: 1. Hyperglycemia/diabetic ketoacidosis. The patient has been placed on insulin drip. The patient is currently in the intensive care unit. An Endocrinology consultation has been obtained with Dr. Sergio Decker. We will follow recommendations of Endocrinology. 2. Urinary tract infection/leukocytosis. A urine culture=E. Coli Continue ceftriaxone. 3. Altered mental status is probably secondary to diabetic ketoacidosis. 4. Diabetes type 2. 5. Hypertension. The patient is currently hypotensive. 6. Hypercholesterolemia. Continue gemfibrozil as above. Leopoldo Long MD Apr 27, 2019 14:52
[2019-04-27] MEDS: Levemir Flexpen SUBQ SCH (20:52)
[2019-04-28] VITALS (7 sets, daily range): BP systolic 120–158; BP diastolic 57–84
[2019-04-28] MEDS: NovoLOG Insulin Flexpen SUBQ SCH ×7 (06:28→21:39)
[2019-04-28 07:07] LABS: HEMATOCRIT 35.3 % (37.0-47.0); HEMOGLOBIN 11.8 G/DL (12.0-16.0); MEAN CORPUSCULAR VOLUME 88 FL (80-99); PLATELET COUNT 229 K/UL (150-450); RED BLOOD COUNT 4.01 M/UL (4.20-5.40); RED CELL DISTRIBUTION WIDTH 12.5 % (11.6-14.8); WHITE BLOOD COUNT 18.8 K/UL (4.8-10.8)
[2019-04-28 07:20] LABS: ALANINE AMINOTRANSFERASE 16 U/L (12-78); ALBUMIN 2.4 G/DL (3.4-5.0); ALBUMIN/GLOBULIN RATIO 0.5 (1.0-2.7); ALKALINE PHOSPHATASE 62 U/L (46-116); ANION GAP 10 mmol/L (5-15); ASPARTATE AMINO TRANSFERASE 18 U/L (15-37); BILIRUBIN,TOTAL 0.2 MG/DL (0.2-1.0); BLOOD UREA NITROGEN 6 mg/dL (7-18); CALCIUM 9.6 MG/DL (8.5-10.1); CARBON DIOXIDE 24 MMOL/L (21-32); CHLORIDE 103 MMOL/L (98-107); CREATININE 0.7 MG/DL (0.55-1.30); PHOSPHORUS 3.1 MG/DL (2.5-4.9); POTASSIUM 3.5 MMOL/L (3.5-5.1); SODIUM 137 MMOL/L (136-145)
[2019-04-28] MEDS: Lisinopril 10mg tab ORAL SCH (08:10)
[2019-04-28] MEDS: Heparin 5000 units/ml inj SUBQ SCH ×2 (08:12→21:40)
--- NOTE | 2019-04-28 09:00 | Pulmonology Progress Note ---
Assessment/Plan Problems: (1) Diabetic keto-acidosis (2) Acute metabolic encephalopathy (3) UTI (urinary tract infection) Assessment/Plan wbc still high, will get CT of abdomen to rule out any abscess BS at the 200 range continue abx Urine cultures reviewed, Echoli pansensitive check labs in am, if wbc normal she can go home dvt prophylaxis will keep at least one more day until wbc is wnl, Subjective ROS Limited/Unobtainable: No Constitutional: Reports: no symptoms HEENT: Repors: no symptoms Respiratory: Reports: no symptoms Allergies: Coded Allergies: No Known Allergies (Verified , 11/15/06) Objective Last 24 Hour Vital Signs Date Time Temp Pulse Resp B/P (MAP) Pulse Ox O2 Delivery O2 Flow Rate FiO2 04/28/19 08:11 82 141/73 04/28/19 08:10 141/73 04/28/19 08:00 99.0 82 16 141/73 (95) 85 04/28/19 07:33 86 18 96 Room Air 21 04/28/19 04:00 98.1 80 16 146/77 (100) 97 04/28/19 00:00 99.6 84 19 141/75 (97) 97 04/27/19 21:00 Room Air 04/27/19 20:46 85 165/87 04/27/19 20:00 99.3 85 19 165/87 (113) 97 04/27/19 20:00 90 18 96 Room Air 21 04/27/19 17:44 154/85 (108) 04/27/19 16:00 99.0 91 17 160/88 (112) 96 04/27/19 12:00 98.2 87 18 175/81 (112) 97 04/27/19 09:39 87 157/81 04/27/19 09:39 157/87 Intake and Output 04/27/19 04/28/19 19:00 07:00 Intake Total 1340 ml 735 ml Balance 1340 ml 735 ml Intake Oral 480 ml 60 ml IV Total 860 ml 675 ml # Voids 3 4 Objective General Appearance: WD/WN Lines, tubes and drains: peripheral HEENT: normocephalic, atraumatic Neck: non-tender, normal alignment Respiratory/Chest: chest wall non-tender, lungs clear Breasts: no masses Cardiovascular/Chest: normal rate Extremities: normal range of motion, non-tender Skin Exam: normal pigmentation Laboratory Tests 04/28/19 06:20: White Blood Count 18.8H, Red Blood Count 4.01L, Hemoglobin 11.8L, Hematocrit 35.3L, Mean Corpuscular Volume 88, Mean Corpuscular Hemoglobin 29.3, Mean Corpuscular Hemoglobin Concent 33.4, Red Cell Distribution Width 12.5, Platelet Count 229, Mean Platelet Volume 8.5, Neutrophils (%) (Auto) , Lymphocytes (%) ( Auto) , Monocytes (%) (Auto) , Eosinophils (%) (Auto) , Basophils (%) (Auto) , Neutrophils % (Manual) [Pending], Lymphocytes % (Manual) [Pending], Platelet Estimate [Pending], Platelet Morphology [Pending], Erythrocyte Sedimentation Rate 54H, Sodium Level 137, Potassium Level 3.5, Chloride Level 103, Carbon Dioxide Level 24, Anion Gap 10, Blood Urea Nitrogen 6L, Creatinine 0.7, Estimat Glomerular Filtration Rate > 60, Glucose Level 147H, Calcium Level 9.6, Phosphorus Level 3.1, Magnesium Level 1.8, Total Bilirubin 0.2, Aspartate Amino Transf (AST/SGOT) 18, Alanine Aminotransferase (ALT/SGPT) 16, Alkaline Phosphatase 62, C-Reactive Protein, Quantitative 1.2H, Total Protein 6.8, Albumin 2.4L, Globulin 4.4, Albumin/Globulin Ratio 0.5L Current Medications Medications (Trade) Dose Ordered Sig/Juan Jose Route PRN Reason Start Time Stop Time Status Last Admin Dose Admin Acetaminophen (Tylenol) 650 mg Q4H PRN ORAL Fever (T>100.5F) 04/26/19 01:30 05/24/19 21:29 Albuterol/ Ipratropium (Albuterol/ Ipratropium) 3 ml Q4H PRN HHN Shortness of Breath 04/26/19 01:30 04/29/19 21:29 Amlodipine Besylate (Norvasc) 2.5 mg EVERY 12 HOURS ORAL 04/27/19 09:00 05/27/19 08:59 04/28/19 08:11 Ceftriaxone Sodium 1 gm/ Dextrose 55 ml @ 110 mls/hr Q24H IVPB 04/26/19 12:00 05/02/19 11:59 04/27/19 12:00 Clonidine HCl (Catapres Tab) 0.1 mg Q6H PRN ORAL SBP > 160mmHg 04/27/19 17:30 05/27/19 17:29 Dextrose (Dextrose 50%) 25 ml Q30M PRN IV Hypoglycemia 04/25/19 22:00 05/25/19 20:29 Dextrose (Dextrose 50%) 50 ml Q30M PRN IV Hypoglycemia 04/25/19 22:00 05/25/19 20:29 Heparin Sodium (Porcine) (Heparin 5000 units/ml) 5,000 units EVERY 12 HOURS SUBQ 04/26/19 09:00 05/25/19 08:59 04/28/19 08:12 Insulin Aspart (NovoLOG) BEFORE MEALS AND HS SUBQ 04/26/19 06:30 05/25/19 20:59 04/28/19 06:28 Insulin Aspart (NovoLOG) 10 units NOVOTIAC SUBQ 04/27/19 11:50 05/26/19 06:29 04/28/19 06:28 Insulin Detemir (Levemir) 24 units QHS SUBQ 04/26/19 21:00 05/25/19 20:59 04/27/19 20:52 Lisinopril (ZestriL) 10 mg DAILY ORAL 04/27/19 09:00 05/27/19 08:59 04/28/19 08:10 Lorazepam (Ativan 2mg/ml 1ml) 2 mg Q2H PRN IV agitation 04/25/19 23:30 05/01/19 21:29 Morphine Sulfate (Morphine Sulfate) 4 mg Q4H PRN IVP Severe Pain (Pain Scale 7-10) 04/26/19 01:30 05/01/19 21:29 Nitroglycerin (Ntg) 0.4 mg Q5M PRN SL Prn Chest Pain 04/25/19 21:45 05/24/19 21:29 Ondansetron HCl (Zofran) 4 mg Q6H PRN IVP Nausea & Vomiting 04/26/19 03:30 05/24/19 21:29 Polyethylene Glycol (Miralax) 17 gm DAILYPRN PRN ORAL Constipation 04/26/19 21:30 05/24/19 21:29 Sodium Chloride 1,000 ml @ 75 mls/hr [id number] IV 04/25/19 21:45 05/25/19 10:59 04/28/19 03:55 Krista Ramirez MD Apr 28, 2019 09:00
[2019-04-28 10:14] LABS: APPEARANCE,URINE CLEAR; BILIRUBIN, URINE NEGATIVE (NEGATIVE); COLOR,URINE PALE YELLOW; GLUCOSE, URINE (UA) 4+ (NEGATIVE); KETONES,URINE 1+ (NEGATIVE); LEUKOCYTE ESTERASE ,URINE 3+ (NEGATIVE); NITRITE,URINE NEGATIVE (NEGATIVE); PH,URINE 5 (4.5-8.0); PROTEIN,URINE 2+ (NEGATIVE); UROBILINOGEN,URINE NORMAL MG/DL (0.0-1.0)
--- NOTE | 2019-04-28 10:23 | Diagnostic Imaging Report ---
EXAM: XR Chest, 1 View CLINICAL HISTORY: DYSPNEA TECHNIQUE: Frontal view of the chest. COMPARISON: Chest radiograph on 04/24/2019 FINDINGS: Hardware: None. Lungs/pleura: Possible trace left pleural effusion. No focal consolidation. Heart/mediastinum: Normal. No cardiomegaly. Soft tissues: Unremarkable. Bones: No acute fracture. Upper abdomen: Normal. IMPRESSION: Possible trace left pleural effusion. No focal consolidation.
[2019-04-28 10:34] LABS: HEMATOCRIT 34.2 % (37.0-47.0); HEMOGLOBIN 11.6 G/DL (12.0-16.0); MEAN CORPUSCULAR VOLUME 88 FL (80-99); PLATELET COUNT 227 K/UL (150-450); RED CELL DISTRIBUTION WIDTH 12.6 % (11.6-14.8); WHITE BLOOD COUNT 19.4 K/UL (4.8-10.8)
--- NOTE | 2019-04-28 10:40 | General Progress Note ---
Assessment/Plan Problem List: (1) Diabetic keto-acidosis ICD Codes: E11.10 - Type 2 diabetes mellitus with ketoacidosis without coma SNOMED: 51637082, 649773608 (2) Diabetes mellitus ICD Codes: E11.9 - Type 2 diabetes mellitus without complications SNOMED: 57414649 (3) UTI (urinary tract infection) ICD Codes: N39.0 - Urinary tract infection, site not specified SNOMED: 58585079 (4) Abnormal TSH ICD Codes: R79.89 - Other specified abnormal findings of blood chemistry SNOMED: 781716089 Assessment/Plan: continue Levemir 24 units qhs continue Novolog 10 units ac tid + NISS all diabetic supplies ordered to her pharmacy and Tim already picked them up no need for thyroid medication - repeat TSH as OP in 3-4 weeks can't be discharge today due to elevated WBC Subjective Allergies: Coded Allergies: No Known Allergies (Verified , 11/15/06) All Systems: reviewed and negative except above Subjective events noted she is feeling better glucose values improved leukocytosis is worse today Item Value Date Time Bedside Blood Glucose 125 mg/dl H 04/28/19 0630 Bedside Blood Glucose 201 mg/dl H 04/27/19 1700 Bedside Blood Glucose 151 mg/dl H 04/27/19 1212 Bedside Blood Glucose 173 mg/dl H 04/27/19 0640 Objective Last 24 Hour Vital Signs Date Time Temp Pulse Resp B/P (MAP) Pulse Ox O2 Delivery O2 Flow Rate FiO2 04/28/19 09:00 Room Air 04/28/19 08:11 82 141/73 04/28/19 08:10 141/73 04/28/19 08:00 99.0 82 16 141/73 (95) 85 04/28/19 07:33 86 18 96 Room Air 21 04/28/19 04:00 98.1 80 16 146/77 (100) 97 04/28/19 00:00 99.6 84 19 141/75 (97) 97 04/27/19 21:00 Room Air 04/27/19 20:46 85 165/87 04/27/19 20:00 99.3 85 19 165/87 (113) 97 04/27/19 20:00 90 18 96 Room Air 21 04/27/19 17:44 154/85 (108) 04/27/19 16:00 99.0 91 17 160/88 (112) 96 04/27/19 12:00 98.2 87 18 175/81 (112) 97 Intake and Output 04/27/19 04/28/19 19:00 07:00 Intake Total 1340 ml 735 ml Balance 1340 ml 735 ml Intake Oral 480 ml 60 ml IV Total 860 ml 675 ml # Voids 3 4 Laboratory Tests 04/28/19 06:20: White Blood Count 18.8H, Red Blood Count 4.01L, Hemoglobin 11.8L, Hematocrit 35.3L, Mean Corpuscular Volume 88, Mean Corpuscular Hemoglobin 29.3, Mean Corpuscular Hemoglobin Concent 33.4, Red Cell Distribution Width 12.5, Platelet Count 229, Mean Platelet Volume 8.5, Neutrophils (%) (Auto) , Lymphocytes (%) ( Auto) , Monocytes (%) (Auto) , Eosinophils (%) (Auto) , Basophils (%) (Auto) , Differential Total Cells Counted 100, Neutrophils % (Manual) 76H, Lymphocytes % (Manual) 13L, Monocytes % (Manual) 11H, Eosinophils % (Manual) 0, Basophils % ( Manual) 0, Band Neutrophils 0, Platelet Estimate Adequate, Platelet Morphology Normal, Red Blood Cell Morphology Normal, Erythrocyte Sedimentation Rate 54H, Sodium Level 137, Potassium Level 3.5, Chloride Level 103, Carbon Dioxide Level 24, Anion Gap 10, Blood Urea Nitrogen 6L, Creatinine 0.7, Estimat Glomerular Filtration Rate > 60, Glucose Level 147H, Calcium Level 9.6, Phosphorus Level 3.1, Magnesium Level 1.8, Total Bilirubin 0.2, Aspartate Amino Transf (AST/SGOT ) 18, Alanine Aminotransferase (ALT/SGPT) 16, Alkaline Phosphatase 62, C- Reactive Protein, Quantitative 1.2H, Total Protein 6.8, Albumin 2.4L, Globulin 4.4, Albumin/Globulin Ratio 0.5L 04/28/19 09:45: White Blood Count 19.4H, Red Blood Count 3.90L, Hemoglobin 11.6L, Hematocrit 34.2L, Mean Corpuscular Volume 88, Mean Corpuscular Hemoglobin 29.7, Mean Corpuscular Hemoglobin Concent 33.8, Red Cell Distribution Width 12.6, Platelet Count 227, Mean Platelet Volume 8.9, Neutrophils (%) (Auto) , Lymphocytes (%) ( Auto) , Monocytes (%) (Auto) , Eosinophils (%) (Auto) , Basophils (%) (Auto) , Neutrophils % (Manual) [Pending], Lymphocytes % (Manual) [Pending], Platelet Estimate [Pending], Platelet Morphology [Pending] 04/28/19 09:50: Urine Color Pale yellow, Urine Appearance Clear, Urine pH 5, Urine Specific Hubert 1.005, Urine Protein 2+H, Urine Glucose (UA) 4+H, Urine Ketones 1+H, Urine Blood 5+H, Urine Nitrite Negative, Urine Bilirubin Negative, Urine Urobilinogen Normal, Urine Leukocyte Esterase 3+H, Urine RBC 5-10H, Urine WBC 10 -15H, Urine Squamous Epithelial Cells Few, Urine Bacteria Few Height (Feet): 5 Height (Inches): 5.00 Weight (Pounds): 138 General Appearance: no apparent distress Neck: normal alignment Cardiovascular: normal rate Respiratory/Chest: lungs clear Abdomen: normal bowel sounds Edema: no edema noted Arm (L), no edema noted Arm (R), no edema noted Leg (L), no edema noted Leg (R), no edema noted Pedal (L), no edema noted Pedal (R), no edema noted Generalized Objective Current Medications Medications (Trade) Dose Ordered Sig/Juan Jose Route PRN Reason Start Time Stop Time Status Last Admin Dose Admin Acetaminophen (Tylenol) 650 mg Q4H PRN ORAL Fever (T>100.5F) 04/26/19 01:30 05/24/19 21:29 Albuterol/ Ipratropium (Albuterol/ Ipratropium) 3 ml Q4H PRN HHN Shortness of Breath 04/26/19 01:30 04/29/19 21:29 Amlodipine Besylate (Norvasc) 2.5 mg EVERY 12 HOURS ORAL 04/27/19 09:00 05/27/19 08:59 04/28/19 08:11 Ceftriaxone Sodium 1 gm/ Dextrose 55 ml @ 110 mls/hr Q24H IVPB 04/26/19 12:00 05/02/19 11:59 04/27/19 12:00 Clonidine HCl (Catapres Tab) 0.1 mg Q6H PRN ORAL SBP > 160mmHg 04/27/19 17:30 05/27/19 17:29 Dextrose (Dextrose 50%) 25 ml Q30M PRN IV Hypoglycemia 04/25/19 22:00 05/25/19 20:29 Dextrose (Dextrose 50%) 50 ml Q30M PRN IV Hypoglycemia 04/25/19 22:00 05/25/19 20:29 Heparin Sodium (Porcine) (Heparin 5000 units/ml) 5,000 units EVERY 12 HOURS SUBQ 04/26/19 09:00 05/25/19 08:59 04/28/19 08:12 Insulin Aspart (NovoLOG) BEFORE MEALS AND HS SUBQ 04/26/19 06:30 05/25/19 20:59 04/28/19 06:28 Insulin Aspart (NovoLOG) 10 units NOVOTIAC SUBQ 04/27/19 11:50 05/26/19 06:29 04/28/19 06:28 Insulin Detemir (Levemir) 24 units QHS SUBQ 04/26/19 21:00 05/25/19 20:59 04/27/19 20:52 Lisinopril (ZestriL) 10 mg DAILY ORAL 04/27/19 09:00 05/27/19 08:59 04/28/19 08:10 Lorazepam (Ativan 2mg/ml 1ml) 2 mg Q2H PRN IV agitation 04/25/19 23:30 05/01/19 21:29 Morphine Sulfate (Morphine Sulfate) 4 mg Q4H PRN IVP Severe Pain (Pain Scale 7-10) 04/26/19 01:30 05/01/19 21:29 Nitroglycerin (Ntg) 0.4 mg Q5M PRN SL Prn Chest Pain 04/25/19 21:45 05/24/19 21:29 Ondansetron HCl (Zofran) 4 mg Q6H PRN IVP Nausea & Vomiting 04/26/19 03:30 05/24/19 21:29 Polyethylene Glycol (Miralax) 17 gm DAILYPRN PRN ORAL Constipation 04/26/19 21:30 05/24/19 21:29 Sodium Chloride 1,000 ml @ 75 mls/hr [id number] IV 04/25/19 21:45 05/25/19 10:59 04/28/19 03:55 Sergio Decker MD Apr 28, 2019 10:39
[2019-04-28] MEDS ORDERED: Omnipaque-300 100ml vial INJ PRN (12:45)
[2019-04-28] MEDS: cefTRIAXone 1 GM in D5W 55 ML IVPB SCH (13:22)
--- NOTE | 2019-04-28 13:22 | Infectious Diseases Prog Note ---
Assessment/Plan Assessment/Plan Abx: Ceftriaxone 04/24- Assessment: Sepsis vs SIRS Probable UTI -04/28 CXR: Possible trace left pleural effusion. No focal consolidation. -u/a wbc 20-30, nit neg, leuk +2; ucx >100k E.coli (I Macrobid; otherwise S) -CXR: no acute disease -04/24 BCx NTD Afebrile HyperLeukocytosis; improving- probably combination of reactive and probable infection DKA Acute encephalopathy FROILAN, improving Dm2 Plan: -Continue empiric Ceftriaxone #5/7 for UTI -upon discharge can be transition to PO Keflex 500mg tid -f/u cx -Monitor CBC/CMP, temperatures -aspiration precautions -Cdiff Thank you for consulting [facility]. Will continue to follow along with you. Discussed with RN. Subjective Allergies: Coded Allergies: No Known Allergies (Verified , 11/15/06) Subjective afebrile wbc overall improved Bcx NTD Objective Vital Signs Last 24 Hour Vital Signs Date Time Temp Pulse Resp B/P (MAP) Pulse Ox O2 Delivery O2 Flow Rate FiO2 04/28/19 12:00 98.8 80 19 146/77 (100) 96 04/28/19 09:00 Room Air 04/28/19 08:11 82 141/73 04/28/19 08:10 141/73 04/28/19 08:00 99.0 82 16 141/73 (95) 85 04/28/19 07:33 86 18 96 Room Air 21 04/28/19 04:00 98.1 80 16 146/77 (100) 97 04/28/19 00:00 99.6 84 19 141/75 (97) 97 04/27/19 21:00 Room Air 04/27/19 20:46 85 165/87 04/27/19 20:00 99.3 85 19 165/87 (113) 97 04/27/19 20:00 90 18 96 Room Air 21 04/27/19 17:44 154/85 (108) 04/27/19 16:00 99.0 91 17 160/88 (112) 96 Height (Feet): 5 Height (Inches): 5.00 Weight (Pounds): 138 Objective General Appearance: WD/WN, alert Lines, tubes and drains: peripheral HEENT: normocephalic, atraumatic Neck: non-tender, normal alignment Respiratory/Chest: chest wall non-tender, lungs clear Breasts: no masses Cardiovascular/Chest: normal peripheral pulses, normal rate Abdomen: normal bowel sounds, non tender Genitourinary/Rectal: normal genital exam, normal prostate exam Extremities: normal range of motion, non-tender Skin Exam: normal pigmentation Neurologic: equity trader II-XII grossly normal Laboratory Tests Test 04/28/19 06:20 04/28/19 09:45 04/28/19 09:50 White Blood Count 18.8 K/UL (4.8-10.8) H 19.4 K/UL (4.8-10.8) H Red Blood Count 4.01 M/UL (4.20-5.40) L 3.90 M/UL (4.20-5.40) L Hemoglobin 11.8 G/DL (12.0-16.0) L 11.6 G/DL (12.0-16.0) L Hematocrit 35.3 % (37.0-47.0) L 34.2 % (37.0-47.0) L Mean Corpuscular Volume 88 FL (80-99) 88 FL (80-99) Mean Corpuscular Hemoglobin 29.3 PG (27.0-31.0) 29.7 PG (27.0-31.0) Mean Corpuscular Hemoglobin Concent 33.4 G/DL (32.0-36.0) 33.8 G/DL (32.0-36.0) Red Cell Distribution Width 12.5 % (11.6-14.8) 12.6 % (11.6-14.8) Platelet Count 229 K/UL (150-450) 227 K/UL (150-450) Mean Platelet Volume 8.5 FL (6.5-10.1) 8.9 FL (6.5-10.1) Neutrophils (%) (Auto) % (45.0-75.0) % (45.0-75.0) Lymphocytes (%) (Auto) % (20.0-45.0) % (20.0-45.0) Monocytes (%) (Auto) % (1.0-10.0) % (1.0-10.0) Eosinophils (%) (Auto) % (0.0-3.0) % (0.0-3.0) Basophils (%) (Auto) % (0.0-2.0) % (0.0-2.0) Differential Total Cells Counted 100 100 Neutrophils % (Manual) 76 % (45-75) H 77 % (45-75) H Lymphocytes % (Manual) 13 % (20-45) L 16 % (20-45) L Monocytes % (Manual) 11 % (1-10) H 7 % (1-10) Eosinophils % (Manual) 0 % (0-3) 0 % (0-3) Basophils % (Manual) 0 % (0-2) 0 % (0-2) Band Neutrophils 0 % (0-8) 0 % (0-8) Platelet Estimate Adequate Adequate Platelet Morphology Normal Normal Red Blood Cell Morphology Normal Normal Erythrocyte Sedimentation Rate 54 MM/HR (0-30) H Sodium Level 137 MMOL/L (136-145) Potassium Level 3.5 MMOL/L (3.5-5.1) Chloride Level 103 MMOL/L (98-107) Carbon Dioxide Level 24 MMOL/L (21-32) Anion Gap 10 mmol/L (5-15) Blood Urea Nitrogen 6 mg/dL (7-18) L Creatinine 0.7 MG/DL (0.55-1.30) Estimat Glomerular Filtration Rate > 60 mL/min (>60) Glucose Level 147 MG/DL (74-106) H Calcium Level 9.6 MG/DL (8.5-10.1) Phosphorus Level 3.1 MG/DL (2.5-4.9) Magnesium Level 1.8 MG/DL (1.8-2.4) Total Bilirubin 0.2 MG/DL (0.2-1.0) Aspartate Amino Transf (AST/SGOT) 18 U/L (15-37) Alanine Aminotransferase (ALT/SGPT) 16 U/L (12-78) Alkaline Phosphatase 62 U/L (46-116) C-Reactive Protein, Quantitative 1.2 mg/dL (0.00-0.90) H Total Protein 6.8 G/DL (6.4-8.2) Albumin 2.4 G/DL (3.4-5.0) L Globulin 4.4 g/dL Albumin/Globulin Ratio 0.5 (1.0-2.7) L Urine Color Pale yellow Urine Appearance Clear Urine pH 5 (4.5-8.0) Urine Specific [place] 1.005 (1.005-1.035) Urine Protein 2+ (NEGATIVE) H Urine Glucose (UA) 4+ (NEGATIVE) H Urine Ketones 1+ (NEGATIVE) H Urine Blood 5+ (NEGATIVE) H Urine Nitrite Negative (NEGATIVE) Urine Bilirubin Negative (NEGATIVE) Urine Urobilinogen Normal MG/DL (0.0-1.0) Urine Leukocyte Esterase 3+ (NEGATIVE) H Urine RBC 5-10 /HPF (0 - 2) H Urine WBC 10-15 /HPF (0 - 2) H Urine Squamous Epithelial Cells Few /LPF (NONE/OCC) Urine Bacteria Few /HPF (NONE) Current Medications Medications (Trade) Dose Ordered Sig/Juan Jose Route PRN Reason Start Time Stop Time Status Last Admin Dose Admin Acetaminophen (Tylenol) 650 mg Q4H PRN ORAL Fever (T>100.5F) 04/26/19 01:30 05/24/19 21:29 Albuterol/ Ipratropium (Albuterol/ Ipratropium) 3 ml Q4H PRN HHN Shortness of Breath 04/26/19 01:30 04/29/19 21:29 Amlodipine Besylate (Norvasc) 2.5 mg EVERY 12 HOURS ORAL 04/27/19 09:00 05/27/19 08:59 04/28/19 08:11 Barium Sulfate (Readi-Cat 2) 450 ml NOW PRN ORAL Radiology Procedure 04/28/19 12:45 04/30/19 12:45 Ceftriaxone Sodium 1 gm/ Dextrose 55 ml @ 110 mls/hr Q24H IVPB 04/26/19 12:00 05/02/19 11:59 04/27/19 12:00 Clonidine HCl (Catapres Tab) 0.1 mg Q6H PRN ORAL SBP > 160mmHg 04/27/19 17:30 05/27/19 17:29 Dextrose (Dextrose 50%) 25 ml Q30M PRN IV Hypoglycemia 04/25/19 22:00 05/25/19 20:29 Dextrose (Dextrose 50%) 50 ml Q30M PRN IV Hypoglycemia 04/25/19 22:00 05/25/19 20:29 Heparin Sodium (Porcine) (Heparin 5000 units/ml) 5,000 units EVERY 12 HOURS SUBQ 12/13/19 09:00 05/25/19 08:59 04/28/19 08:12 Insulin Aspart (NovoLOG) BEFORE MEALS AND HS SUBQ 04/26/19 06:30 05/25/19 20:59 04/28/19 11:35 Insulin Aspart (NovoLOG) 10 units NOVOTIAC SUBQ 04/27/19 11:50 05/26/19 06:29 04/28/19 11:35 Insulin Detemir (Levemir) 24 units QHS SUBQ 04/26/19 21:00 05/25/19 20:59 04/27/19 20:52 Iohexol (OMNIPAQUE-300 100ml) 100 ml NOW PRN INJ Radiology Procedure 04/28/19 12:45 04/30/19 12:45 Lisinopril (ZestriL) 10 mg DAILY ORAL 04/27/19 09:00 05/27/19 08:59 04/28/19 08:10 Lorazepam (Ativan 2mg/ml 1ml) 2 mg Q2H PRN IV agitation 04/25/19 23:30 05/01/19 21:29 Morphine Sulfate (Morphine Sulfate) 4 mg Q4H PRN IVP Severe Pain (Pain Scale 7-10) 04/26/19 01:30 05/01/19 21:29 Nitroglycerin (Ntg) 0.4 mg Q5M PRN SL Prn Chest Pain 04/25/19 21:45 05/24/19 21:29 Ondansetron HCl (Zofran) 4 mg Q6H PRN IVP Nausea & Vomiting 04/26/19 03:30 05/24/19 21:29 Polyethylene Glycol (Miralax) 17 gm DAILYPRN PRN ORAL Constipation 04/26/19 21:30 05/24/19 21:29 Sodium Chloride 1,000 ml @ 75 mls/hr [id number] IV 04/25/19 21:45 05/25/19 10:59 04/28/19 03:55 Zahida Valero M.D. Apr 28, 2019 13:22
--- NOTE | 2019-04-28 14:49 | Internal Med Progress Note ---
Subjective Date of Service: Apr 28, 2019 Physician Name Leopoldo Long Attending Physician Mike Pereira MD Current Medications Medications (Trade) Dose Ordered Sig/Juan Jose Route PRN Reason Start Time Stop Time Status Last Admin Dose Admin Acetaminophen (Tylenol) 650 mg Q4H PRN ORAL Fever (T>100.5F) 04/26/19 01:30 05/24/19 21:29 Albuterol/ Ipratropium (Albuterol/ Ipratropium) 3 ml Q4H PRN HHN Shortness of Breath 04/26/19 01:30 04/29/19 21:29 Amlodipine Besylate (Norvasc) 2.5 mg EVERY 12 HOURS ORAL 04/27/19 09:00 05/27/19 08:59 04/28/19 08:11 Barium Sulfate (Readi-Cat 2) 450 ml NOW PRN ORAL Radiology Procedure 04/28/19 12:45 04/30/19 12:45 Ceftriaxone Sodium 1 gm/ Dextrose 55 ml @ 110 mls/hr Q24H IVPB 04/26/19 12:00 05/02/19 11:59 04/28/19 13:22 Clonidine HCl (Catapres Tab) 0.1 mg Q6H PRN ORAL SBP > 160mmHg 04/27/19 17:30 05/27/19 17:29 Dextrose (Dextrose 50%) 25 ml Q30M PRN IV Hypoglycemia 04/25/19 22:00 05/25/19 20:29 Dextrose (Dextrose 50%) 50 ml Q30M PRN IV Hypoglycemia 04/25/19 22:00 05/25/19 20:29 Heparin Sodium (Porcine) (Heparin 5000 units/ml) 5,000 units EVERY 12 HOURS SUBQ 04/26/19 09:00 05/25/19 08:59 04/28/19 08:12 Insulin Aspart (NovoLOG) BEFORE MEALS AND HS SUBQ 04/26/19 06:30 05/25/19 20:59 04/28/19 11:35 Insulin Aspart (NovoLOG) 10 units NOVOTIAC SUBQ 04/27/19 11:50 05/26/19 06:29 04/28/19 11:35 Insulin Detemir (Levemir) 24 units QHS SUBQ 04/26/19 21:00 05/25/19 20:59 04/27/19 20:52 Iohexol (OMNIPAQUE-300 100ml) 100 ml NOW PRN INJ Radiology Procedure 04/28/19 12:45 04/30/19 12:45 Lisinopril (ZestriL) 10 mg DAILY ORAL 04/27/19 09:00 05/27/19 08:59 04/28/19 08:10 Lorazepam (Ativan 2mg/ml 1ml) 2 mg Q2H PRN IV agitation 04/25/19 23:30 05/01/19 21:29 Morphine Sulfate (Morphine Sulfate) 4 mg Q4H PRN IVP Severe Pain (Pain Scale 7-10) 04/26/19 01:30 05/01/19 21:29 Nitroglycerin (Ntg) 0.4 mg Q5M PRN SL Prn Chest Pain 04/25/19 21:45 05/24/19 21:29 Ondansetron HCl (Zofran) 4 mg Q6H PRN IVP Nausea & Vomiting 04/26/19 03:30 05/24/19 21:29 Polyethylene Glycol (Miralax) 17 gm DAILYPRN PRN ORAL Constipation 04/26/19 21:30 05/24/19 21:29 Sodium Chloride 1,000 ml @ 75 mls/hr [id number] IV 04/25/19 21:45 05/25/19 10:59 04/28/19 03:55 Allergies: Coded Allergies: No Known Allergies (Verified , 11/15/06) ROS Limited/Unobtainable: No Constitutional: Reports: no symptoms HEENT: Reports: no symptoms Cardiovascular: Reports: no symptoms Respiratory: Reports: no symptoms Gastrointestinal/Abdominal: Reports: no symptoms Genitourinary: Reports: no symptoms Neurologic/Psychiatric: Reports: no symptoms Subjective 63 YO F admitted with altered mental status. Now DKA and UTI. Cover for Int Amilcar Pereira Objective Last Vital Signs Date Time Temp Pulse Resp B/P (MAP) Pulse Ox O2 Delivery O2 Flow Rate FiO2 04/28/19 12:00 98.8 80 19 146/77 (100) 96 04/28/19 09:00 Room Air 04/28/19 07:33 21 Laboratory Tests Test 04/28/19 06:20 04/28/19 09:45 04/28/19 09:50 White Blood Count 18.8 K/UL (4.8-10.8) H 19.4 K/UL (4.8-10.8) H Red Blood Count 4.01 M/UL (4.20-5.40) L 3.90 M/UL (4.20-5.40) L Hemoglobin 11.8 G/DL (12.0-16.0) L 11.6 G/DL (12.0-16.0) L Hematocrit 35.3 % (37.0-47.0) L 34.2 % (37.0-47.0) L Mean Corpuscular Volume 88 FL (80-99) 88 FL (80-99) Mean Corpuscular Hemoglobin 29.3 PG (27.0-31.0) 29.7 PG (27.0-31.0) Mean Corpuscular Hemoglobin Concent 33.4 G/DL (32.0-36.0) 33.8 G/DL (32.0-36.0) Red Cell Distribution Width 12.5 % (11.6-14.8) 12.6 % (11.6-14.8) Platelet Count 229 K/UL (150-450) 227 K/UL (150-450) Mean Platelet Volume 8.5 FL (6.5-10.1) 8.9 FL (6.5-10.1) Neutrophils (%) (Auto) % (45.0-75.0) % (45.0-75.0) Lymphocytes (%) (Auto) % (20.0-45.0) % (20.0-45.0) Monocytes (%) (Auto) % (1.0-10.0) % (1.0-10.0) Eosinophils (%) (Auto) % (0.0-3.0) % (0.0-3.0) Basophils (%) (Auto) % (0.0-2.0) % (0.0-2.0) Differential Total Cells Counted 100 100 Neutrophils % (Manual) 76 % (45-75) H 77 % (45-75) H Lymphocytes % (Manual) 13 % (20-45) L 16 % (20-45) L Monocytes % (Manual) 11 % (1-10) H 7 % (1-10) Eosinophils % (Manual) 0 % (0-3) 0 % (0-3) Basophils % (Manual) 0 % (0-2) 0 % (0-2) Band Neutrophils 0 % (0-8) 0 % (0-8) Platelet Estimate Adequate Adequate Platelet Morphology Normal Normal Red Blood Cell Morphology Normal Normal Erythrocyte Sedimentation Rate 54 MM/HR (0-30) H Sodium Level 137 MMOL/L (136-145) Potassium Level 3.5 MMOL/L (3.5-5.1) Chloride Level 103 MMOL/L (98-107) Carbon Dioxide Level 24 MMOL/L (21-32) Anion Gap 10 mmol/L (5-15) Blood Urea Nitrogen 6 mg/dL (7-18) L Creatinine 0.7 MG/DL (0.55-1.30) Estimat Glomerular Filtration Rate > 60 mL/min (>60) Glucose Level 147 MG/DL (74-106) H Calcium Level 9.6 MG/DL (8.5-10.1) Phosphorus Level 3.1 MG/DL (2.5-4.9) Magnesium Level 1.8 MG/DL (1.8-2.4) Total Bilirubin 0.2 MG/DL (0.2-1.0) Aspartate Amino Transf (AST/SGOT) 18 U/L (15-37) Alanine Aminotransferase (ALT/SGPT) 16 U/L (12-78) Alkaline Phosphatase 62 U/L (46-116) C-Reactive Protein, Quantitative 1.2 mg/dL (0.00-0.90) H Total Protein 6.8 G/DL (6.4-8.2) Albumin 2.4 G/DL (3.4-5.0) L Globulin 4.4 g/dL Albumin/Globulin Ratio 0.5 (1.0-2.7) L Urine Color Pale yellow Urine Appearance Clear Urine pH 5 (4.5-8.0) Urine Specific [place] 1.005 (1.005-1.035) Urine Protein 2+ (NEGATIVE) H Urine Glucose (UA) 4+ (NEGATIVE) H Urine Ketones 1+ (NEGATIVE) H Urine Blood 5+ (NEGATIVE) H Urine Nitrite Negative (NEGATIVE) Urine Bilirubin Negative (NEGATIVE) Urine Urobilinogen Normal MG/DL (0.0-1.0) Urine Leukocyte Esterase 3+ (NEGATIVE) H Urine RBC 5-10 /HPF (0 - 2) H Urine WBC 10-15 /HPF (0 - 2) H Urine Squamous Epithelial Cells Few /LPF (NONE/OCC) Urine Bacteria Few /HPF (NONE) Intake and Output 04/27/19 04/28/19 19:00 07:00 Intake Total 1340 ml 810 ml Balance 1340 ml 810 ml Intake Oral 480 ml 60 ml IV Total 860 ml 750 ml # Voids 3 4 Objective PHYSICAL EXAMINATION: GENERAL: The patient is well-developed and well-nourished female, in no apparent distress. The patient was noted to be confused. HEENT: Eyes, pupils are equal and responsive to light and accommodation. Extraocular muscles are intact. NECK: Supple. No lymphadenopathy. CHEST: Lungs are clear to auscultation bilaterally without wheezes or rales. CARDIOVASCULAR: Regular rate. S1 and S2 are normal without murmurs, rubs, or gallops. ABDOMEN: Soft, nontender, nondistended. Positive bowel sounds. No evidence of hepatosplenomegaly. Currently, no rebound or guarding noted. EXTREMITIES: Negative for clubbing, cyanosis, or edema. RECTAL: Not performed. GENITAL: Not performed. NEUROLOGIC: Cranial nerves II to XII are grossly intact without focal deficits. Motor strength is 5/5 bilaterally. Deep tendon reflexes are 2+ plantar. Assessment/Plan Assessment/Plan ASSESSMENT: This is a 63-year-old female. 1. Altered mental status. 2. Hyperglycemia. 3. Diabetic ketoacidosis. 4. Leukocytosis. 5. Urinary tract infection=E. Coli 6. Diabetes type 2. 7. Hypertension 8. Hypercholesterolemia. TREATMENT: 1. Hyperglycemia/diabetic ketoacidosis. The patient has been placed on insulin drip. The patient is currently in the intensive care unit. An Endocrinology consultation has been obtained with Dr. Sergio Decker. We will follow recommendations of Endocrinology. 2. Urinary tract infection/leukocytosis. A urine culture=E. Coli Continue ceftriaxone. 3. Altered mental status is probably secondary to diabetic ketoacidosis. 4. Diabetes type 2. 5. Hypertension. The patient is currently hypotensive. 6. Hypercholesterolemia. Continue gemfibrozil as above. Leopoldo Long MD Apr 28, 2019 14:49
--- NOTE | 2019-04-28 20:08 | Diagnostic Imaging Report ---
Clinical Indication: Abdominal pain Technique: No oral contrast utilized, per emergency room physician request IV administration nonionic contrast. Venous phase spiral acquisition obtained through the abdomen and pelvis. Multiplanar reconstructions were generated. Total dose length product 911 mGycm. CTDIvol(s) 16 mGy. Dose reduction achieved using automated exposure control Comparison: 11/16/2006 Findings: Large enhancing endophytic mass in the bladder lumen attached to the posterior wall to the right of midline, measures 6.2 x 3.5 x 4.4 cm. No definite serosal invasion. No pericystic lymphadenopathy demonstrated. The appendix is normal. A few small gas bubbles are seen in the nondependent portion of the bladder lumen. There is a 2.7 cm ovoid mass posterior to the bladder on the left which is also present on the prior exam. This appears to be separate from the left ovary. No evidence of colonic diverticulosis or diverticulitis demonstrated. Contrast has traversed the entirety of the small bowel and most of the colon. No small bowel distention or small bowel wall thickening. No free or loculated intraperitoneal gas or fluid. The liver, gallbladder, bile ducts, pancreas, spleen, adrenals, kidneys are unremarkable. No renal or ureteral calculi, hydronephrosis, or hydroureter demonstrated. The included lung bases are clear. The bones demonstrate degenerative spondylosis changes at the lumbosacral junction. When compared to prior exam, previously demonstrated [place] catheter is no longer evident. Previously demonstrated hepatic fatty change as result Impression: 6.2 x 3.5 x 4.4 cm endophytic bladder mass, concerning for neoplasm and cystoscopy recommended A few gas bubbles are seen within the bladder lumen. Most likely due to recent instrumentation. If no history of such, the possibility of infection with a gas-forming organism should be considered No other acute abnormality Incidental finding of degenerative spondylosis This agrees with the preliminary interpretation provided overnight by [facility] teleradiology service. The CT scanner at [facility] is accredited by the [employer] and the scans are performed using protocols designed to limit radiation exposure to as low as reasonably achievable to attain images of sufficient resolution adequate for diagnostic evaluation.
[2019-04-28] MEDS: Levemir Flexpen SUBQ SCH (21:38)
[2019-04-29] VITALS: BP 120/57
[2019-04-29 04:00] VITALS: BP 141/71
[2019-04-29] MEDS: NovoLOG Insulin Flexpen SUBQ SCH ×4 (06:31→12:08)
[2019-04-29 07:19] LABS: HEMATOCRIT 33.6 % (37.0-47.0); HEMOGLOBIN 11.2 G/DL (12.0-16.0); MEAN CORPUSCULAR VOLUME 89 FL (80-99); PLATELET COUNT 218 K/UL (150-450); RED BLOOD COUNT 3.78 M/UL (4.20-5.40); RED CELL DISTRIBUTION WIDTH 12.9 % (11.6-14.8)
[2019-04-29 07:49] LABS: ALANINE AMINOTRANSFERASE 18 U/L (12-78); ALBUMIN 2.3 G/DL (3.4-5.0); ALBUMIN/GLOBULIN RATIO 0.5 (1.0-2.7); ALKALINE PHOSPHATASE 61 U/L (46-116); ANION GAP 9 mmol/L (5-15); ASPARTATE AMINO TRANSFERASE 23 U/L (15-37); BILIRUBIN,TOTAL 0.2 MG/DL (0.2-1.0); BLOOD UREA NITROGEN 7 mg/dL (7-18); CALCIUM 9.1 MG/DL (8.5-10.1); CARBON DIOXIDE 24 MMOL/L (21-32); CHLORIDE 104 MMOL/L (98-107); CREATININE 0.7 MG/DL (0.55-1.30); PHOSPHORUS 3.2 MG/DL (2.5-4.9); POTASSIUM 3.2 MMOL/L (3.5-5.1); SODIUM 137 MMOL/L (136-145)
[2019-04-29 08:00] VITALS: BP 142/67
[2019-04-29] MEDS: Lisinopril 10mg tab ORAL SCH (08:43)
[2019-04-29] MEDS: Heparin 5000 units/ml inj SUBQ SCH (08:51)
--- NOTE | 2019-04-29 10:58 | Infectious Diseases Prog Note ---
Assessment/Plan Assessment/Plan Abx: Ceftriaxone 04/24- Assessment: Sepsis vs SIRS Probable UTI -04/28 CXR: Possible trace left pleural effusion. No focal consolidation. -u/a wbc 20-30, nit neg, leuk +2; ucx >100k E.coli (I Macrobid; otherwise S) -CXR: no acute disease -04/24 BCx NTD Afebrile HyperLeukocytosis; improving- probably combination of reactive and probable infection DKA Acute encephalopathy FROILAN, improving Dm2 Plan: -Continue empiric Ceftriaxone #6/7 for UTI -upon discharge can be transition to PO Keflex 500mg tid -Monitor CBC/CMP, temperatures -aspiration precautions -Cdiff Thank you for consulting [facility]. Will continue to follow along with you. Subjective Allergies: Coded Allergies: No Known Allergies (Verified , 11/15/06) Subjective Afebrile Stable Leukocytosis 18 Objective Vital Signs Last 24 Hour Vital Signs Date Time Temp Pulse Resp B/P (MAP) Pulse Ox O2 Delivery O2 Flow Rate FiO2 04/29/19 08:43 80 141/71 04/29/19 08:43 141/71 04/29/19 08:00 98.9 81 18 142/67 (92) 97 04/29/19 04:00 98.4 80 18 141/71 (94) 96 04/29/19 00:00 98.1 84 20 120/57 (78) 96 04/28/19 21:35 74 158/74 04/28/19 21:00 Room Air 04/28/19 20:00 98.2 80 20 158/84 (108) 98 04/28/19 16:00 99.0 81 18 138/78 (98) 96 04/28/19 12:00 98.8 80 19 146/77 (100) 96 Height (Feet): 5 Height (Inches): 5.00 Weight (Pounds): 138 Objective General Appearance: NAD HEENT: normocephalic, atraumatic, MMM Respiratory/Chest: chest wall non-tender, lungs clear Cardiovascular/Chest: normal peripheral pulses, normal rate Abdomen: normal bowel sounds, non tender Microbiology Date/Time Source Procedure Growth Status 04/28/19 09:50 Urine,Clean Catch Urine Culture - Preliminary NO GROWTH Resulted Laboratory Tests Test 04/29/19 05:34 White Blood Count 18.0 K/UL (4.8-10.8) H Red Blood Count 3.78 M/UL (4.20-5.40) L Hemoglobin 11.2 G/DL (12.0-16.0) L Hematocrit 33.6 % (37.0-47.0) L Mean Corpuscular Volume 89 FL (80-99) Mean Corpuscular Hemoglobin 29.6 PG (27.0-31.0) Mean Corpuscular Hemoglobin Concent 33.3 G/DL (32.0-36.0) Red Cell Distribution Width 12.9 % (11.6-14.8) Platelet Count 218 K/UL (150-450) Mean Platelet Volume 8.9 FL (6.5-10.1) Neutrophils (%) (Auto) % (45.0-75.0) Lymphocytes (%) (Auto) % (20.0-45.0) Monocytes (%) (Auto) % (1.0-10.0) Eosinophils (%) (Auto) % (0.0-3.0) Basophils (%) (Auto) % (0.0-2.0) Neutrophils % (Manual) Pending Lymphocytes % (Manual) Pending Platelet Estimate Pending Platelet Morphology Pending Erythrocyte Sedimentation Rate 70 MM/HR (0-30) H Sodium Level 137 MMOL/L (136-145) Potassium Level 3.2 MMOL/L (3.5-5.1) L Chloride Level 104 MMOL/L (98-107) Carbon Dioxide Level 24 MMOL/L (21-32) Anion Gap 9 mmol/L (5-15) Blood Urea Nitrogen 7 mg/dL (7-18) Creatinine 0.7 MG/DL (0.55-1.30) Estimat Glomerular Filtration Rate > 60 mL/min (>60) Glucose Level 142 MG/DL (74-106) H Calcium Level 9.1 MG/DL (8.5-10.1) Phosphorus Level 3.2 MG/DL (2.5-4.9) Magnesium Level 1.7 MG/DL (1.8-2.4) L Total Bilirubin 0.2 MG/DL (0.2-1.0) Aspartate Amino Transf (AST/SGOT) 23 U/L (15-37) Alanine Aminotransferase (ALT/SGPT) 18 U/L (12-78) Alkaline Phosphatase 61 U/L (46-116) C-Reactive Protein, Quantitative 0.7 mg/dL (0.00-0.90) Total Protein 6.5 G/DL (6.4-8.2) Albumin 2.3 G/DL (3.4-5.0) L Globulin 4.2 g/dL Albumin/Globulin Ratio 0.5 (1.0-2.7) L Current Medications Medications (Trade) Dose Ordered Sig/Juan Jose Route PRN Reason Start Time Stop Time Status Last Admin Dose Admin Acetaminophen (Tylenol) 650 mg Q4H PRN ORAL Fever (T>100.5F) 04/26/19 01:30 05/24/19 21:29 Albuterol/ Ipratropium (Albuterol/ Ipratropium) 3 ml Q4H PRN HHN Shortness of Breath 04/26/19 01:30 04/29/19 21:29 Amlodipine Besylate (Norvasc) 2.5 mg EVERY 12 HOURS ORAL 04/27/19 09:00 05/27/19 08:59 04/29/19 08:43 Barium Sulfate (Readi-Cat 2) 450 ml NOW PRN ORAL Radiology Procedure 04/28/19 12:45 04/30/19 12:45 Ceftriaxone Sodium 1 gm/ Dextrose 55 ml @ 110 mls/hr Q24H IVPB 04/26/19 12:00 05/02/19 11:59 04/28/19 13:22 Clonidine HCl (Catapres Tab) 0.1 mg Q6H PRN ORAL SBP > 160mmHg 04/27/19 17:30 05/27/19 17:29 Dextrose (Dextrose 50%) 25 ml Q30M PRN IV Hypoglycemia 04/25/19 22:00 05/25/19 20:29 Dextrose (Dextrose 50%) 50 ml Q30M PRN IV Hypoglycemia 04/25/19 22:00 05/25/19 20:29 Heparin Sodium (Porcine) (Heparin 5000 units/ml) 5,000 units EVERY 12 HOURS SUBQ 04/26/19 09:00 05/25/19 08:59 04/29/19 08:51 Insulin Aspart (NovoLOG) BEFORE MEALS AND HS SUBQ 04/26/19 06:30 05/25/19 20:59 04/29/19 06:32 Insulin Aspart (NovoLOG) 10 units NOVOTIAC SUBQ 04/27/19 11:50 05/26/19 06:29 04/29/19 06:31 Insulin Detemir (Levemir) 24 units QHS SUBQ 04/26/19 21:00 05/25/19 20:59 04/28/19 21:38 Iohexol (OMNIPAQUE-300 100ml) 100 ml NOW PRN INJ Radiology Procedure 04/28/19 12:45 04/30/19 12:45 Lisinopril (ZestriL) 10 mg DAILY ORAL 04/27/19 09:00 05/27/19 08:59 04/29/19 08:43 Lorazepam (Ativan 2mg/ml 1ml) 2 mg Q2H PRN IV agitation 04/25/19 23:30 05/01/19 21:29 Morphine Sulfate (Morphine Sulfate) 4 mg Q4H PRN IVP Severe Pain (Pain Scale 7-10) 04/26/19 01:30 05/01/19 21:29 Nitroglycerin (Ntg) 0.4 mg Q5M PRN SL Prn Chest Pain 04/25/19 21:45 05/24/19 21:29 Ondansetron HCl (Zofran) 4 mg Q6H PRN IVP Nausea & Vomiting 04/26/19 03:30 05/24/19 21:29 Polyethylene Glycol (Miralax) 17 gm DAILYPRN PRN ORAL Constipation 04/26/19 21:30 05/24/19 21:29 Sodium Chloride 1,000 ml @ 75 mls/hr [id number] IV 04/25/19 21:45 05/25/19 10:59 04/29/19 06:25 Fly Nur MD Apr 29, 2019 10:58
[2019-04-29 12:00] VITALS: BP 142/90
[2019-04-29] MEDS: cefTRIAXone 1 GM in D5W 55 ML IVPB SCH (12:17)
--- NOTE | 2019-04-29 13:06 | Pulmonology Progress Note ---
Assessment/Plan Problems: (1) Diabetic keto-acidosis (2) Acute metabolic encephalopathy (3) UTI (urinary tract infection) Assessment/Plan CT of abdomen showed bladder mass BS at the 200 range continue abx Urine cultures reviewed, Echoli pansensitive check labs in am, if wbc normal she can go home dvt prophylaxis will keep at least one more day until wbc is wnl, Subjective ROS Limited/Unobtainable: No Constitutional: Reports: no symptoms HEENT: Repors: no symptoms Respiratory: Reports: no symptoms Allergies: Coded Allergies: No Known Allergies (Verified , 11/15/06) Objective Last 24 Hour Vital Signs Date Time Temp Pulse Resp B/P (MAP) Pulse Ox O2 Delivery O2 Flow Rate FiO2 04/29/19 09:00 Room Air 04/29/19 08:43 80 141/71 04/29/19 08:43 141/71 04/29/19 08:00 98.9 81 18 142/67 (92) 97 04/29/19 04:00 98.4 80 18 141/71 (94) 96 04/29/19 00:00 98.1 84 20 120/57 (78) 96 04/28/19 21:35 74 158/74 04/28/19 21:00 Room Air 04/28/19 20:00 98.2 80 20 158/84 (108) 98 04/28/19 16:00 99.0 81 18 138/78 (98) 96 Intake and Output 04/28/19 04/29/19 19:00 07:00 Intake Total 2460 ml 930 ml Balance 2460 ml 930 ml IV Total 860 ml 900 ml Other 1600 ml 30 ml # Voids 4 Objective General Appearance: WD/WN Lines, tubes and drains: peripheral HEENT: normocephalic, atraumatic Neck: non-tender, normal alignment Respiratory/Chest: chest wall non-tender, lungs clear Breasts: no masses Cardiovascular/Chest: normal rate Extremities: normal range of motion, non-tender Skin Exam: normal pigmentation Microbiology Date/Time Source Procedure Growth Status 04/28/19 09:50 Urine,Clean Catch Urine Culture - Preliminary NO GROWTH Resulted Laboratory Tests 04/29/19 05:34: White Blood Count 18.0H, Red Blood Count 3.78L, Hemoglobin 11.2L, Hematocrit 33.6L, Mean Corpuscular Volume 89, Mean Corpuscular Hemoglobin 29.6, Mean Corpuscular Hemoglobin Concent 33.3, Red Cell Distribution Width 12.9, Platelet Count 218, Mean Platelet Volume 8.9, Neutrophils (%) (Auto) , Lymphocytes (%) ( Auto) , Monocytes (%) (Auto) , Eosinophils (%) (Auto) , Basophils (%) (Auto) , Differential Total Cells Counted 100, Neutrophils % (Manual) 63, Lymphocytes % ( Manual) 21, Monocytes % (Manual) 16H, Eosinophils % (Manual) 0, Basophils % ( Manual) 0, Band Neutrophils 0, Platelet Estimate Adequate, Platelet Morphology Normal, Hypochromasia 1+, Anisocytosis 1+, Erythrocyte Sedimentation Rate 70H, Sodium Level 137, Potassium Level 3.2L, Chloride Level 104, Carbon Dioxide Level 24, Anion Gap 9, Blood Urea Nitrogen 7, Creatinine 0.7, Estimat Glomerular Filtration Rate > 60, Glucose Level 142H, Calcium Level 9.1, Phosphorus Level 3.2, Magnesium Level 1.7L, Total Bilirubin 0.2, Aspartate Amino Transf (AST/SGOT) 23, Alanine Aminotransferase (ALT/SGPT) 18, Alkaline Phosphatase 61, C-Reactive Protein, Quantitative 0.7, Total Protein 6.5, Albumin 2.3L, Globulin 4.2, Albumin/Globulin Ratio 0.5L Current Medications Medications (Trade) Dose Ordered Sig/Juan Jose Route PRN Reason Start Time Stop Time Status Last Admin Dose Admin Acetaminophen (Tylenol) 650 mg Q4H PRN ORAL Fever (T>100.5F) 04/26/19 01:30 05/24/19 21:29 Albuterol/ Ipratropium (Albuterol/ Ipratropium) 3 ml Q4H PRN HHN Shortness of Breath 04/26/19 01:30 04/29/19 21:29 Amlodipine Besylate (Norvasc) 2.5 mg EVERY 12 HOURS ORAL 04/27/19 09:00 05/27/19 08:59 04/29/19 08:43 Barium Sulfate (Readi-Cat 2) 450 ml NOW PRN ORAL Radiology Procedure 04/28/19 12:45 04/30/19 12:45 Ceftriaxone Sodium 1 gm/ Dextrose 55 ml @ 110 mls/hr Q24H IVPB 04/26/19 12:00 05/02/19 11:59 04/29/19 12:17 Clonidine HCl (Catapres Tab) 0.1 mg Q6H PRN ORAL SBP > 160mmHg 04/27/19 17:30 05/27/19 17:29 Dextrose (Dextrose 50%) 25 ml Q30M PRN IV Hypoglycemia 04/25/19 22:00 05/25/19 20:29 Dextrose (Dextrose 50%) 50 ml Q30M PRN IV Hypoglycemia 04/25/19 22:00 05/25/19 20:29 Heparin Sodium (Porcine) (Heparin 5000 units/ml) 5,000 units EVERY 12 HOURS SUBQ 04/26/19 09:00 05/25/19 08:59 04/29/19 08:51 Insulin Aspart (NovoLOG) BEFORE MEALS AND HS SUBQ 04/26/19 06:30 05/25/19 20:59 04/29/19 06:32 Insulin Aspart (NovoLOG) 10 units NOVOTIAC SUBQ 04/27/19 11:50 05/26/19 06:29 04/29/19 06:31 Insulin Detemir (Levemir) 24 units QHS SUBQ 04/26/19 21:00 05/25/19 20:59 04/28/19 21:38 Iohexol (OMNIPAQUE-300 100ml) 100 ml NOW PRN INJ Radiology Procedure 04/28/19 12:45 04/30/19 12:45 Lisinopril (ZestriL) 10 mg DAILY ORAL 04/27/19 09:00 05/27/19 08:59 04/29/19 08:43 Lorazepam (Ativan 2mg/ml 1ml) 2 mg Q2H PRN IV agitation 04/25/19 23:30 05/01/19 21:29 Morphine Sulfate (Morphine Sulfate) 4 mg Q4H PRN IVP Severe Pain (Pain Scale 7-10) 04/26/19 01:30 05/01/19 21:29 Nitroglycerin (Ntg) 0.4 mg Q5M PRN SL Prn Chest Pain 04/25/19 21:45 05/24/19 21:29 Ondansetron HCl (Zofran) 4 mg Q6H PRN IVP Nausea & Vomiting 04/26/19 03:30 05/24/19 21:29 Polyethylene Glycol (Miralax) 17 gm DAILYPRN PRN ORAL Constipation 04/26/19 21:30 05/24/19 21:29 Sodium Chloride 1,000 ml @ 75 mls/hr [id number] IV 04/25/19 21:45 05/25/19 10:59 04/29/19 06:25 Krista Ramirez MD Apr 29, 2019 13:06
[2019-04-29] MEDS ORDERED: NORVASC2.5 MG ORAL (13:11)
[2019-04-29] MEDS ORDERED: NOVOLOG100 UNITS1 SUBQ (13:11)
[2019-04-29] MEDS ORDERED: LEVEMIR FL100 UNIT/1 SUBQ (13:11)
[2019-04-29] MEDS ORDERED: ZESTRIL10 M1 ORAL (13:11)
[2019-04-29] MEDS ORDERED: Magnesium Oxide 400mg tab ORAL SCH (13:15)
--- NOTE | 2019-05-02 10:21 | Discharge Summary ---
Discharge Summary Discharge Summary _ DATE OF ADMISSION: 04/24/2019 DATE OF DISCHARGE: 04/29/2019 DISCHARGED BY: Dr. Pereira REASON FOR ADMISSION: 63 years old female with past medical history of diabetes mellitus, hypertension , hypercholesterolemia, presented to emergency department for evaluation. According to patient's friend , patient was increasingly confused over the last couple of days. Blood sugar was elevated.. Patient was taking oral anti-glycemic at home . No fever or chills. No chest pain. No vomiting or diarrhea. No flank pain. Upon evaluation patient was slightly tachycardic, otherwise vital signs were stable. Laboratory work-up revealed significant leukocytosis WBC 29.6, stable hemoglobin and hematocrit. Urinalysis revealed pyuria and many bacteria, +4 glucose , +2 ketones. Sodium 122, potassium 6.0 , anion gap 28. BUN 33 , creatinine 1.9 . Glucose 1058 . Stable LFT . Albumin 3.1. ABG revealed metabolic acidosis. Lactic acid 1.6. Troponin 0.019 , pro BNP 560. Hemoglobin A1c 14.4. Chest x-ray revealed no acute cardiopulmonary pathology. EKG revealed sinus rhythm, no acute ischemic changes. In emergency department patient started on the IV hydration, insulin drip , empiric antibiotic for UTI and admitted to ICU for further management. CONSULTANTS: pulmonary /critical care Dr. Ramirez ID specialist Dr. Valero director building Dr. Decker [facility] COURSE: Patient admitted to ICU . Patient was on generous IV hydration and insulin drip as per protocol. Oral And Maxillofacial Pathologist followed. When anion gap closed , insulin drip was discontinued , and patient started on long-acting Levemir, short acting pre-meal NovoLog and sliding scale of insulin as needed. Insulin dose titrated based on blood sugar readings. Hemoglobin A1c 14.4 , clearly not at goal. Diabetic diet provided. Patient was encouraged compliance with medications and diet. TSH minimally low 0.304, no need for thyroid medication at this time as per director building. He recommended repeat TSH as outpatient in 3 to 4 weeks. Lipid panel revealed severely elevated triglycerides 761, total cholesterol 256 ,LDL 118. HDL low, - 28. Patient started on gemfibrozil. Patient was counseled on low-fat low-cholesterol diabetic diet. ID specialist followed. Urine culture revealed E. coli. Blood cultures were negative. Repeated blood culture as well as urine culture were all negative. Patient continued to have leukocytosis, but it was trending down , no fevers. Patient initially had hyperleukocytosis , which was improving, probably combination of reactive leukocytosis as well as due to infection, as per ID specialist. Renal parameters and electrolytes were closely monitored. Electrolytes corrected as needed , and nephrotoxins were avoided. Prior to discharge sodium 137. Hyperkalemia resolved. BUN from 33 down to 7 , creatinine from 1.9 down to 0.7. Acute kidney injury resolved , was likely due to dehydration and diabetic ketoacidosis. Phosphorus , magnesium , potassium were all replaced. Blood pressure was managed with calcium channel justin and CHRISTIE inhibitor. DVT prophylaxis provided. Pulse oximetry remained stable on room air. Patient clinically stabilized and was ready for discharge home. Reinforced compliance, compliance with medication regimen CT of the abdomen and pelvis revealed evidence of bladder mass , concerning for neoplasm. Cystoscopy was recommended. Recommended outpatient follow-up with urologist to schedule up for cystoscopy for workup of bladder mass. FINAL DIAGNOSES: Diabetic ketoacidosis Acute metabolic encephalopathy Urinary tract infection with E. coli Acute kidney injury- resolved Hyponatremia Hyperkalemia Bladder mass Diabetes mellitus [id number] Abnormal TSH Hypertension Hypercholesterolemia DISCHARGE MEDICATIONS: See Medication Reconciliation list. DISCHARGE INSTRUCTIONS: Patient was discharged home. Follow-up with a primary care provider in 1 week wireferral to urologist for further work-up of bladder mass I have been assigned to dictate discharge summary for this account. I was not involved in the patient's management. Anne Art NP May 02, 2019 10:21
== END 2019-04-29 13:45 | disposition home or self-care (01) | DRG 637 ==
LOC: EMR 16:50 → ICU 18:26 → EDBEDREQ 18:59 → 3E 04-25 21:45 → 4E 04-27 11:18
DX: E11.10 Type 2 diabetes mellitus with ketoacidosis without coma (principal); G93.41 Metabolic encephalopathy; N39.0 Urinary tract infection, site not specified; N17.9 Acute kidney failure, unspecified; E87.1 Hypo-osmolality and hyponatremia; E78.00 Pure hypercholesterolemia, unspecified; I10 Essential (primary) hypertension; Z91.19 Patient's noncompliance with other medical treatment and regimen; B96.20 Unspecified Escherichia coli [E. coli] as the cause of diseases classified elsewhere; E87.5 Hyperkalemia; R94.6 Abnormal results of thyroid function studies
CPT/HCPCS: 36415; 36600; 71045; 74177; 80048; 80053; 80061; 80076; 81001; 81003; 82550; 82553; 82803; 82962; 83036; 83605; 83690; 83735; 83880; 83970; 84100; 84439; 84443; 84484; 85007; 85025; 85610; 85651; 85730; 86140; 87040; 87081; 87086; 87181; 93005; 93970; 94664; 96361; 96365; 96366; 96375; 99291; J1815; J7030; J8499; S5561